=== PATIENT | male | born 1960 | race African-American/Black ===

== ENCOUNTER 2021-02-16 14:38 | Outpatient (REF) | payer BC, SELFPAY | END 2021-02-16 14:39 | disposition home or self-care (01) | LOC: HO.LAB 14:38 | PROVIDERS: Visit Provider Nurse Practitioner Family | DX: Z20.822 Contact with and (suspected) exposure to COVID-19 (principal); J40 Bronchitis, not specified as acute or chronic | CPT/HCPCS: U0003; U0005 ==

== ENCOUNTER 2021-05-07 08:43 | Inpatient (IN) | payer OTHER, SELFPAY ==
[2021-05-07] VITALS (8 sets, daily range): BP systolic 120–170; BP diastolic 59–84; PULSE 101–115; RESP 17–23; TEMP 36.9–39.4; O2SAT 92–96; BMI 30.5
--- NOTE | ~2021-05-07 | XR_ITS ---
EXAMINATION: XR CHEST CLINICAL INFORMATION: Cough. COMPARISON: None TECHNIQUE: Frontal view of the chest was obtained. FINDINGS: Lungs are well-expanded with patchy opacity left upper lobe likely infiltrate or consolidation. Rest of lungs are clear. The heart size and pulmonary vascularity is normal. There is moderate spondylosis dorsal spine. XR/XR chest 1V IMPRESSION: Left upper lobe consolidation/infiltrate.
--- NOTE | ~2021-05-07 | CT_ITS ---
EXAMINATION: CT HEAD WITHOUT CONTRAST (STROKE PROTOCOL) CLINICAL INFORMATION: Stroke protocol. Off balance. COMPARISON: None TECHNIQUE: Contiguous axial imaging was performed from the skull base to vertex without intravenous administration of contrast. This CT examination was performed using dose optimization techniques as appropriate, variously including the following: *Automated exposure control *Adjustment of mA and/or kV according to patient size (this includes techniques or standardized protocols for targeted exams where dose is matched to indication/reason for exam; i.e. extremities or head) *Use of iterative reconstruction technique DLP: 1763 mGy-cm FINDINGS: There is no intracranial hemorrhage, hematoma, or extra-axial fluid collection. The ventricles are normal in size. There is no hydrocephalus, edema, or mass effect. The hernández-white matter differentiation appears symmetric. There is no acute infarct or mass lesion. The calvarium appears intact. There is no pneumocephalus or orbital emphysema. Mucus retention cyst versus polyp within the right maxillary sinus. The visualized sinuses and middle ears and mastoid air cells show no significant mucosal thickening. There are no air-fluid levels. CT/CT head for stroke IMPRESSION: No acute intracranial hemorrhage or mass effect. This critical result was discussed with ALDO Bruce at 1:50 PM on 05/10/2021. It was ascertained that the content and urgency of the report was understood at the time of direct communication.
--- NOTE | ~2021-05-07 | US_ITS ---
EXAMINATION: US EXTRACRANIAL CAROTID DUPLEX, BILATERAL CLINICAL INFORMATION: Stroke protocol COMPARISON: None TECHNIQUE: Real-time ultrasound and Doppler techniques (integrating B-mode 2-D vascular images, Doppler spectral analysis and color-flow Doppler imaging) were utilized to interrogate the extracranial carotid arteries, the vertebral arteries and proximal subclavian arteries bilaterally. The degree of stenosis is determined by criteria similar to NASCET. FINDINGS: Right Side: 1. There is no significant atherosclerotic plaque seen in the bifurcation/proximal ICA region. 2. The common carotid artery PSV proximally is 94 cm/s and distally 81 cm/s. 3. The proximal internal carotid artery velocities are 76 cm/s systolic and 16 cm/s diastolic. 4. The proximal external carotid artery PSV is 108 cm/s. 5. The vertebral artery shows antegrade flow. 6. The subclavian artery waveforms are normal. Left Side: 1. There is no significant atherosclerotic plaque seen in the bifurcation/proximal ICA region. 2. The common carotid artery PSV proximally is 123 cm/s and distally 83 cm/s. 3. The proximal internal carotid artery velocities are 66 cm/s systolic and 19 cm/s diastolic. 4. The proximal external carotid artery PSV is 145 cm/s. 5. The vertebral artery shows antegrade flow. 6. The subclavian artery waveforms are normal. US/US carotid duplex BI IMPRESSION: 1. RIGHT: Normal right internal carotid artery without atherosclerotic plaque or hemodynamically significant stenosis. 2. LEFT: Normal left internal carotid artery without atherosclerotic plaque or hemodynamically significant stenosis.
--- NOTE | ~2021-05-07 | MR_ITS ---
EXAMINATION: MRI BRAIN WITHOUT CONTRAST CLINICAL INFORMATION: Question posterior circulation stroke. COMPARISON: CT scanning of the head 05/11/2021. TECHNIQUE: Multiplanar MR imaging of the brain was performed without contrast. FINDINGS: There is an ill-defined focus of restricted diffusion involving the right periatrial white matter. A few other discrete foci of diffusion are visualized within the right dorsal thalamus, left storm, and right cerebral hemisphere. These findings are consistent with acute infarcts within the posterior circulation. Otherwise no pathological magnetic susceptibility artifact. Intracranial vascular flow voids are maintained. There is no intracranial mass effect or midline shift. No abnormal extra-axial collection. Lateral and third ventricles are normal. No hydrocephalus.. Evaluation the midline structures demonstrates advanced degenerative arthrosis with at least moderate canal stenosis at the level of C3-C4. No acute bone marrow signal changes. There is no mastoid or middle ear effusion. Mild paranasal sinus disease primarily affecting the ethmoid air cells and there is a tension cyst within the right maxillary sinus. Globes and orbits are symmetric. 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 If there are clinical symptoms of compressive myelopathy then a dedicated cervical spine MRI can be obtained for better anatomic characterization of the cord and canal.
--- NOTE | ~2021-05-07 | CT_ITS ---
EXAMINATION: CT ANGIOGRAM OF THE CHEST WITH AND WITHOUT CONTRAST (CT PULMONARY ANGIOGRAM FOR PE) CLINICAL INFORMATION: Shortness of breath. COMPARISON: Chest radiograph done earlier today at 9:12 AM. TECHNIQUE: Prior to contrast administration, noncontrast localization images were obtained. Subsequently, multidetector volumetric imaging was performed from the thoracic inlet to below the diaphragms following the administration of 71 mL Omnipaque 350 intravenous contrast. No contrast reaction reported Sagittal, coronal, and MIP oblique sagittal reformatted images were obtained on the CT workstation, uploaded to PACS, and reviewed. This CT examination was performed using dose optimization techniques as appropriate, variously including the following: *Automated exposure control *Adjustment of mA and/or kV according to patient size (this includes techniques or standardized protocols for targeted exams where dose is matched to indication/reason for exam; i.e. extremities or head) *Use of iterative reconstruction technique Total exam dose-length product 124 mGy-cm FINDINGS: QUALITY OF STUDY/CONTRAST BOLUS: Suboptimal. PULMONARY ARTERIES: Examination is somewhat limited by motion and visualization of segmental and subsegmental branches in the left lung is suboptimal due to overlying airspace opacities. Accounting for these limitations, no central or segmental pulmonary emboli are identified. THORACIC AORTA: Scattered atherosclerotic disease. No aneurysm or dissection. LUNG: Extensive consolidation in the left upper lobe with internal air bronchograms. Less extensive consolidative changes in the left lower lobe. Groundglass opacities in the periphery of the right upper lobe, right middle lobe and right lung base. The main airways are patent. PLEURA: Small left pleural effusion. No pneumothorax. MEDIASTINUM: Normal heart size. No pericardial effusion. No hilar or mediastinal lymphadenopathy. No evidence of septal bowing or right heart strain. CHEST WALL/AXILLA: No axillary or internal mammary lymphadenopathy. OSSEOUS STRUCTURES: No acute or suspicious osseous abnormality. UPPER ABDOMEN: Unremarkable. No reflux of contrast into the hepatic veins to suggest elevated right heart pressures. CT/CT angio chest PE protocol IMPRESSION: Evaluation of segmental and subsegmental branches is somewhat suboptimal due to motion and overlying airspace opacities. Accounting for these limitations, no definite pulmonary emboli are identified. No signs of increased right-sided heart pressures. Multifocal airspace disease with the largest consolidation in the left upper lobe, this could be related with a multifocal pneumonia. Recommend a short-term follow-up to ensure resolution. VTE: negative
--- NOTE | 2021-05-07 08:54 | ED_ITS ---
HPI - URI/Sore Throat General Chief Complaint: Upper Respiratory Symptoms Stated Complaint: FLU LIKE,SOB,FVR,CHILLS,BODYACHES,CRUISE RTN 05/05 Time Seen by Provider: 05/07/21 08:45 Source: patient and EMS Mode of arrival: EMS Limitations: no limitations History of Present Illness MD elicited complaint: other (fevers, body aches, feels weak) Pertinent past history: other (just came back from [place] cruise - someone 3 cabins down had COVID) Onset (ago): day(s) (5) Consistency: constant Severity: moderate Able to tolerate fluids by mouth: Yes Exacerbating factors: nothing Relieving factors: nothing Context: other (cruise travel (port out of [place])) Associated symptoms: fever, chills, myalgias, headache and cough Treatments prior to arrival: acetaminophen Related Data Home Medications Medication Instructions Recorded Confirmed adalimumab 40 mg/0.4 mL 40 mg SUBCUT Q2W 02/12/21 subcutaneous pen kit amlodipine 10 mg tablet 10 mg PO DAILY 02/12/21 atorvastatin 40 mg tablet 40 mg PO DAILY 02/12/21 atorvastatin 80 mg tablet 0 mg PO 02/12/21 dorzolamide 22.3 mg-timolol 6.8 1 drp OPHTHALMIC (EYE) BID 02/12/21 mg/mL eye drops dulaglutide 1.5 mg/0.5 mL 1.5 mg SUBCUT QWEEK 02/12/21 subcutaneous pen injector etodolac 400 mg tablet 400 mg PO BID 02/12/21 folic acid 1 mg tablet 1 mg PO BID 02/12/21 gabapentin 300 mg capsule 300 mg PO TID 02/12/21 gabapentin 400 mg capsule 400 mg PO TID 02/12/21 hydrochlorothiazide 25 mg tablet 12.5 mg PO QAM 02/12/21 insulin glargine 100 unit/mL (3 30 unit SUBCUT BEDTIME 02/12/21 mL) subcutaneous pen leflunomide 20 mg tablet 10 mg PO DAILY 02/12/21 meloxicam 15 mg tablet 15 mg PO DAILY 02/12/21 metformin 1,000 mg tablet 1,000 mg PO BID 02/12/21 methotrexate sodium 2.5 mg tablet mg PO 02/12/21 netarsudil 0.02 %-latanoprost 1 drp OPHTHALMIC (EYE) BEDTIME 02/12/21 0.005 % eye drops omeprazole 20 mg capsule,delayed 20 mg PO DAILY 02/12/21 release sertraline 100 mg tablet 100 mg PO DAILY 02/12/21 Previous Rx's Medication Instructions Recorded carbamide peroxide 6.5 % ear drops 5 drp OTIC (EARS) DAILY 4 Days #18 02/12/21 (Debrox) ml albuterol sulfate 90 mcg/actuation 2 puff INHALATION Q4-6H PRN #6.7 g 02/16/21 aerosol inhaler (ProAir HFA) azithromycin 250 mg tablet See Rx Instructions PO .COMPLEX #6 02/16/21 tab prednisone 20 mg tablet 40 mg PO DAILY 5 Days #10 tab 02/16/21 Allergies Allergy/AdvReac Type Severity Reaction Status Date / Time No Known Allergies Allergy Verified 02/16/21 14:05 [No Known Allergies*] Review of Systems Review of Systems: Constitutional : No Weight loss, pos Fever, pos Chills, pos Fatigue, pos Malaise ENT/Mouth : No sore throat, pos Rhinorrhea Eyes: No Eye Pain, No Swelling, No Redness Cardiovascular : No Chest Pain, No SOB, No Dyspnea on Exertion Respiratory : pos Cough, No Sputum, No Wheezing Gastrointestinal : No Nausea, No Vomiting, No Diarrhea, No Constipation, No abdominal Pain, No Hematochezia, No Melena Genitourinary : No Dysuria, No Urinary Frequency, No Hematuria, Musculoskeletal : No joint pain, pos Myalgias, No Joint Swelling Skin : No Skin Lesions, No rash Neuro : pos Weakness, No Numbness, No Dizziness, No Headache Psych : No Anxiety/Panic, No Depression Heme/Lymph: No Bruising, No Bleeding,No Lymphadenopathy Endocrine : No Polyuria, No Polydipsia All other systems reviewed and are negative [facility] Past Medical History Attestation statement: The following information was validated with the patient. Medical History Diabetes HTN (hypertension) Hyperlipidemia Social History Social History Alcohol intake: never Patient Tobacco Use Status: Current everyday Tobacco user Use of substances other than those prescribed or required for medical reasons: No Advance Directives: No Advance Directives Information Provided: No Physical Exam Vital Signs: Vital Signs: Last Vital Signs Temp 99.9 F 05/07/21 08:51 Pulse 109 H 05/07/21 08:51 Resp 18 05/07/21 08:51 BP 143/76 H 05/07/21 08:51 Pulse Ox 96 05/07/21 08:51 Body Mass Index 30.5 Appearance: Alert. Oriented X3. No acute distress. Eyes: Pupils equal, round and reactive to light. ENT: Pharynx normal. Neck: Normal inspection. Neck supple. CVS: tachycardic heart rate and rhythm. Pulses normal. Respiratory: No respiratory distress. Breath sounds normal. Abdomen: Soft and non-tender. Skin: Skin warm and dry. Normal skin color. Normal skin turgor. Extremities: No lower extremity edema. No calf ttp Neuro: Oriented X 3. No motor deficit. No sensory deficit. Course Course Course Narrative: IV abx ordered given EDMUND infiltrate - CAP - ceftriaxone and levofloxacin legionella ordered MDM - URI/Sore Throat MDM Narrative Medical decision making narrative: 61 yo male with DM, HTN, HLD vaccinated several months ago with Moderna here with c/o flu like illness after going on a cruise. He does note that someone 3 cabins down tested positive for COVID. At this time labs, CXR, FLU/RSV/COVID ordered, gentle fluids Lab Data Result diagrams: 05/07/21 09:22 05/07/21 09:22 Labs: Lab Results 05/07/21 05/07/21 05/07/21 Range/Units 09: 09:22 09:22 WBC 11.1 H (4.8-10.8) X10*3/uL RBC 4.77 (4.60-5.80) X10*6/uL Hgb 11.6 L (14.0-18.0) g/dl Hct 34.0 L (42-52) % MCV 71.3 L (80-98) fL MCH 24.3 L (27.0-33.0) pg MCHC 34.1 (31.0-36.0) g/dl RDW 13.5 (11.0-16.0) % Plt Count 178 (160-400) X10*3/uL MPV 10.9 (9.4-12.4) fL Immature Gran % (Auto) 0.6 H (0.0-0.4) % Neut % (Auto) 87.2 H (45-73) % Lymph % (Auto) 5.9 L (20-40) % [place] % (Auto) 6.1 (2-11) % Eos % (Auto) 0.0 (0-4) % Baso % (Auto) 0.2 (0-2) % Lymph # (Auto) 0.7 L (1.2-4.9) X10*3/uL [place] # (Auto) 0.7 (0.1-1.2) X10*3/uL Eos # (Auto) 0.0 (0.0-0.4) X10*3/uL Baso # (Auto) 0.0 (0.0-0.2) X10*3/uL Abs Immat Gran (auto) 0.07 H (0.00-0.03) X10*3/uL Absolute Neuts (auto) 9.7 H (2.0-8.3) X10*3/uL Absolute Nucleated RBC 0.000 (0.0-0.012) X10*3/uL Nucleated RBC % (auto) 0.0 (0.0-0.2) /100WBC Sodium 126 L (135-145) mmol/L Potassium 3.8 (3.3-5.1) mmol/L Chloride 92 L (96-108) mmol/L Carbon Dioxide 22 (22-29) mmol/L Anion Gap 16 (12-20) BUN 16 (9-16) mg/dL Creatinine 1.29 (0.5-1.4) mg/dL Estim Creat Clear Calc 74.3 Estimated GFR 57 Random Glucose 336 H (60-115) mg/dL Lactic Acid (0.5-2.0) mmol/L Calcium 8.8 (8.4-10.2) mg/dL Magnesium 1.3 L* (1.6-2.6) mg/dL Total Bilirubin 3.9 H (0.0-1.0) mg/dL Direct Bilirubin 2.0 H (0.0-0.5) mg/dL AST 48 H (5-37) U/L ALT 38 (0-40) U/L Alkaline Phosphatase 58 (39-117) U/L Total Protein 6.5 (6.5-8.0) g/dL Albumin 3.6 (3.5-5.0) g/dL Coronavirus (PCR) NEGATIVE (Negative) Influenza Type A (PCR) NEGATIVE (Negative) Influenza Type B (PCR) NEGATIVE (Negative) RSV RNA Qual (PCR) NEGATIVE (Negative) 05/07/21 Range/Units 09:22 WBC (4.8-10.8) X10*3/uL RBC (4.60-5.80) X10*6/uL Hgb (14.0-18.0) g/dl Hct (42-52) % MCV (80-98) fL MCH (27.0-33.0) pg MCHC (31.0-36.0) g/dl RDW (11.0-16.0) % Plt Count (160-400) X10*3/uL MPV (9.4-12.4) fL Immature Gran % (Auto) (0.0-0.4) % Neut % (Auto) (45-73) % Lymph % (Auto) (20-40) % [place] % (Auto) (2-11) % Eos % (Auto) (0-4) % Baso % (Auto) (0-2) % Lymph # (Auto) (1.2-4.9) X10*3/uL [place] # (Auto) (0.1-1.2) X10*3/uL Eos # (Auto) (0.0-0.4) X10*3/uL Baso # (Auto) (0.0-0.2) X10*3/uL Abs Immat Gran (auto) (0.00-0.03) X10*3/uL Absolute Neuts (auto) (2.0-8.3) X10*3/uL Absolute Nucleated RBC (0.0-0.012) X10*3/uL Nucleated RBC % (auto) (0.0-0.2) /100WBC Sodium (135-145) mmol/L Potassium (3.3-5.1) mmol/L Chloride (96-108) mmol/L Carbon Dioxide (22-29) mmol/L Anion Gap (12-20) BUN (9-16) mg/dL Creatinine (0.5-1.4) mg/dL Estim Creat Clear Calc Estimated GFR Random Glucose (60-115) mg/dL Lactic Acid 2.2 H* (0.5-2.0) mmol/L Calcium (8.4-10.2) mg/dL Magnesium (1.6-2.6) mg/dL Total Bilirubin (0.0-1.0) mg/dL Direct Bilirubin (0.0-0.5) mg/dL AST (5-37) U/L ALT (0-40) U/L Alkaline Phosphatase (39-117) U/L Total Protein (6.5-8.0) g/dL Albumin (3.5-5.0) g/dL Coronavirus (PCR) (Negative) Influenza Type A (PCR) (Negative) Influenza Type B (PCR) (Negative) RSV RNA Qual (PCR) (Negative) Discharge Plan Discharge Clinical Impression: Acidosis, lactic, Acute hyponatremia, Pneumonia Patient Disposition: Admitted As Inpatient Prescriptions: No Action methotrexate sodium 2.5 mg tablet PO RF: 0 gabapentin 400 mg capsule 400 mg PO TID RF: 0 Rocklatan 0.02-0.005 % drops 1 drp ophthalmic (eye) BEDTIME RF: 0 Trulicity 1.5 mg/0.5 mL pen injector 1.5 mg subcut QWEEK RF: 0 metformin 1,000 mg tablet 1,000 mg PO BID RF: 0 folic acid 1 mg tablet 1 mg PO BID RF: 0 hydrochlorothiazide 25 mg tablet 12.5 mg PO QAM RF: 0 dorzolamide-timolol 22.3-6.8 mg/mL drops 1 drp ophthalmic (eye) BID RF: 0 etodolac 400 mg tablet 400 mg PO BID RF: 0 gabapentin 300 mg capsule 300 mg PO TID RF: 0 omeprazole 20 mg capsule,delayed release(DR/EC) 20 mg PO DAILY RF: 0 atorvastatin 80 mg tablet 0 mg PO RF: 0 amlodipine 10 mg tablet 10 mg PO DAILY RF: 0 meloxicam 15 mg tablet 15 mg PO DAILY RF: 0 sertraline 100 mg tablet 100 mg PO DAILY RF: 0 atorvastatin 40 mg tablet 40 mg PO DAILY RF: 0 leflunomide 20 mg tablet 10 mg PO DAILY RF: 0 Humira(CF) Pen 40 mg/0.4 mL pen injector kit 40 mg subcut Q2W RF: 0 Lantus Solostar U-100 Insulin 100 unit/mL (3 mL) insulin pen 30 unit subcut BEDTIME RF: 0 carbamide peroxide [Debrox] 6.5 % drops 5 drp otic (ears) DAILY 4 Days Qty: 18 RF: 0 albuterol sulfate [ProAir HFA] 90 mcg/actuation HFA aerosol inhaler 2 puff inhalation Q4-6H PRN (Reason: shortness of breath or wheezing) Qty: 6.7 RF: 0 prednisone 20 mg tablet 40 mg PO DAILY 5 Days Qty: 10 RF: 0 azithromycin 250 mg tablet See Rx Instructions PO .COMPLEX Qty: 6 RF: 0
[2021-05-07 09:28] LABS: MANUAL DIFF FLAG NO
[2021-05-07 09:31] LABS: Basophils Percent Auto 0.2 % (0-2); Hemoglobin 11.6 g/dl (14.0-18.0); Imm Gran Abs Auto 0.07 X10*3/uL (0.00-0.03); Imm Gran Pct Auto 0.6 % (0.0-0.4); Lymphocytes Absolute Auto 0.7 X10*3/uL (1.2-4.9); Lymphocytes Percent Auto 5.9 % (20-40); Mean Corpuscular HGB Conc 34.1 g/dl (31.0-36.0); Mean Corpuscular Hemoglobin 24.3 pg (27.0-33.0); Mean Corpuscular Volume 71.3 fL (80-98); Mean Platelet Volume 10.9 fL (9.4-12.4); Monocytes Absolute Auto 0.7 X10*3/uL (0.1-1.2); Monocytes Percent Auto 6.1 % (2-11); Neutrophils Absolute Auto 9.7 X10*3/uL (2.0-8.3); Neutrophils Percent Auto 87.2 % (45-73); Platelet Count 178 X10*3/uL (160-400); Red Blood Count 4.77 X10*6/uL (4.60-5.80); Red Cell Distribution Width 13.5 % (11.0-16.0); White Blood Count 11.1 X10*3/uL (4.8-10.8)
[2021-05-07] MEDS: HYDROcodone/Homat 5/1.5/5 ML 5 ML SYRUP PO (09:36)
[2021-05-07] MEDS: 0.9 % Sodium Chloride 500 ML IV (09:36)
[2021-05-07] MEDS: Ibuprofen 600 MG TABLET PO (09:36)
[2021-05-07 09:41] LABS: Lactic Acid 2.2 mmol/L (0.5-2.0)
[2021-05-07 09:53] LABS: Alanine Aminotransferase 38 U/L (0-40); Albumin Level 3.6 g/dL (3.5-5.0); Alkaline Phosphatase 58 U/L (39-117); Anion Gap 16 (12-20); Aspartate Amino Transferase 48 U/L (5-37); Bilirubin Total 3.9 mg/dL (0.0-1.0); Blood Urea Nitrogen 16 mg/dL (9-16); Calcium 8.8 mg/dL (8.4-10.2); Carbon Dioxide 22 mmol/L (22-29); Chloride 92 mmol/L (96-108); Creatinine Clr Calc Pharmacy 74.3; Estimated Glomerular Filt Rate 57; Glucose Random 336 mg/dL (60-115); Magnesium 1.3 mg/dL (1.6-2.6); Potassium 3.8 mmol/L (3.3-5.1); Sodium 126 mmol/L (135-145); Total Protein 6.5 g/dL (6.5-8.0)
[2021-05-07] MEDS: cefTRIAXone sodium 1 GM in 0.9 % Sodium Chloride 50 ML IV (10:05)
[2021-05-07] MEDS: Magnesium Sulfate/H2O 2 GM/50 ML PIGGYBACK IV (10:05)
[2021-05-07 10:13] LABS: Influenza A PCR NEGATIVE (Negative); Influenza B PCR NEGATIVE (Negative); Resp Syncy Virus RNA Qual PCR NEGATIVE (Negative); SARS COV2 PCR INHOUSE NEGATIVE (Negative)
--- NOTE | 2021-05-07 10:58 | PM.IMHP ---
History of Present Illness Date of Service: 05/07/21 Chief Complaint: fevers, generalized malaise, cough, diarrhea This is a 61-year-old male with a past medical history of hypertension, insulin-dependent diabetes, hyperlipidemia, who reports that for the last about 4 days he has had fevers and chills, nonproductive cough, back ache, diarrhea about 3-4 times daily with associated loss of appetite but no vomiting. Patient reports that he was on a [place] Cruise and his symptoms began about 4-5 days ago. Per ED provider report -- there was a known COVID sick contact on the cruise. The patient himself denies anyone else within his house hold being sick. He endorses that he has been vaccinated for COVID, for several months at least. He reports that his diarrhea was watery, 3-4 times a day without blood. He reports loss of appetite and reports that he has not taken his medications for several days. He denies any tobacco, alcohol or illicit substance use. Upon arrival to the ED, he was noted to be tachycardic and mild respiratory distress. His work up showed elevated LFTs - T. Bili 3.9, elevated lactate 0 2.2, a CXR showing pneumonia, SNa 126, Glucose, Mag 1.3 He was given IV rocephin/levaquin/IV fluids, IV mag and admission was requested. Review of Systems Review of Systems: General - +fevers/chills/generalized malaise HEENT - +headache Cardiovascular - denies chest pain or palpitations, denies edema Respiratory - +SOB, cough -- non productive Gastrointestinal - +diarrhea, no nausea/vomiting, +loss of appetite - denies flank pain, denies dysuria, denies frequency or urgency Musculoskeletal - denies back pain, denies hip pain, denies knee pain, denies shoulder pain Neurological - denies any focal weakness or numbness Skin, denies any bruising or redness Psychiatric - denies any suicidal ideation, hallucinations, homicidal ideation Endocrinology - denies intolerance to hot / cold temperatures [facility] Medical History (Updated 05/07/21 @ 12:48 by Edmond Diaz MD) Diabetes Glaucoma HTN (hypertension) Hyperlipidemia Rheumatoid arteritis Pertinent family history: DM and Dementia in his mother Surgical History (Updated 05/07/21 @ 11:10 by Edmond Diaz MD) No pertinent past surgical history Social History (Updated 05/07/21 @ 11:11 by Edmond Diaz MD) Alcohol intake: former Patient Tobacco Use Status: Current everyday Tobacco user Use of substances other than those prescribed or required for medical reasons: No Advance Directives: No Advance Directives Information Provided: No Meds Allergies Allergy/AdvReac Type Severity Reaction Status Date / Time No Known Allergies Allergy Verified 02/16/21 14:05 [No Known Allergies*] Active Medications: Current Medications Acetaminophen (Acetaminophen 325 Mg Tablet) 650 mg PO Q6H PRN PRN Reason: Pain, Mild (Pain Scale 1-3) Magnesium Sulfate (Magnesium Sulfate/H2o) 2 gm in 50 mls @ 25 mls/hr IV ONCE ONE Stop: 05/07/21 11:51 Last Admin: 05/07/21 10:05 Dose: 25 mls/hr Documented by: Levofloxacin (Levaquin) 500 mg in 100 mls @ 100 mls/hr IV ONCE ONE Stop: 05/07/21 11:14 Sodium Chloride (Ns) 1,000 mls @ 100 mls/hr IVCONT .Q10H CATY Stop: 05/07/21 20:59 Ceftriaxone Sodium 1 gm/ (Sodium Chloride) 50 mls @ 100 mls/hr IV Q24H CATY Azithromycin 500 mg/ Sodium (Chloride) 250 mls @ 125 mls/hr IV Q24H CATY Ondansetron HCl (Ondansetron Hcl 4 Mg/2 Ml Vial) 4 mg IVPUSH Q8H PRN PRN Reason: Nausea and Vomiting Pharmacy Consult (Consult Rx Perform Med Rec) 1 each MISCELLANE ONCE PRN PRN Reason: Consult order Sodium Chloride (0.9 % Sodium Chloride Flush 3 Ml Syringe) 3 ml IVFLUSH QSHIFT [facility] Home Medications Medication Instructions Recorded Confirmed Last Taken Type amlodipine 10 mg tablet 10 mg PO DAILY 02/12/21 05/07/21 05/06/21 History atorvastatin 80 mg tablet 40 mg PO DAILY 02/12/21 05/07/21 05/06/21 History dorzolamide 22.3 mg-timolol 6.8 1 drp OPHTHALMIC (EYE) BID 02/12/21 05/07/21 05/06/21 History mg/mL eye drops dulaglutide 1.5 mg/0.5 mL 1.5 mg SUBCUT MO 02/12/21 05/07/21 05/06/21 History subcutaneous pen injector etodolac 400 mg tablet 400 mg PO BID 02/12/21 05/07/21 05/06/21 History folic acid 1 mg tablet 1 mg PO BID 02/12/21 05/07/21 05/06/21 History gabapentin 300 mg capsule 600 mg PO BID 02/12/21 05/07/21 05/06/21 History insulin glargine 100 unit/mL (3 60 unit SUBCUT BEDTIME 02/12/21 05/07/21 05/06/21 History mL) subcutaneous pen metformin 1,000 mg tablet 1,000 mg PO BID 02/12/21 05/07/21 05/06/21 History netarsudil 0.02 %-latanoprost 1 drp OPHTHALMIC (EYE) BEDTIME 02/12/21 05/07/21 05/06/21 History 0.005 % eye drops omeprazole 20 mg capsule,delayed 20 mg PO DAILY 02/12/21 05/07/21 05/06/21 History release sertraline 100 mg tablet 100 mg PO DAILY 02/12/21 05/07/21 05/06/21 History aspirin 81 mg chewable tablet 81 mg PO DAILY 05/07/21 05/07/21 05/06/21 History glimepiride 4 mg tablet 1 tab PO DAILY 05/07/21 05/07/21 Unknown History prednisolone acetate 1 % eye 1 drp OPHTHALMIC (EYE) DAILY 05/07/21 05/07/21 05/06/21 History drops,suspension prednisone 1 mg tablet 3 mg PO DAILY 05/07/21 05/07/21 05/06/21 History prednisone 5 mg tablet 10 mg PO DAILY 05/07/21 05/07/21 05/06/21 History valacyclovir 1 gram tablet 1 tab PO BID 05/07/21 05/07/21 05/06/21 History Physical Exam Vital Signs and Narrative: Vital Signs: Last Vital Signs Temp 99.9 F 05/07/21 08:51 Pulse 109 H 05/07/21 08:51 Resp 18 05/07/21 08:51 BP 143/76 H 05/07/21 08:51 Pulse Ox 96 05/07/21 08:51 Body Mass Index 30.5 Const: Other: Constitutional - Awake and Alert, No apparent distress, ill appearing Eyes - PERRLA, EOMI Cardiovascular - S1S2, RRR, No edema Respiratory - diminished sounds Gastrointestinal - NT / ND; +BS; No rebound or guarding - No CVA tenderness Extremities - no calf tenderness bilaterally, no swelling Musculoskeletal - Normal inspection, normal ROM Skin - Warm/Dry Neurological - Alert & oriented x3, No focal deficit Psychological - Appropriate affect Results Labs CBC and Chem 7: 05/07/21 09:22 05/07/21 09:22 Labs: Laboratory Results - last 24 hr 05/07/21 05/07/21 05/07/21 09: 09:22 09:22 MCV 71.3 L MCH 24.3 L MCHC 34.1 RDW 13.5 Plt Count 178 MPV 10.9 Immature Gran % (Auto) 0.6 H Neut % (Auto) 87.2 H Lymph % (Auto) 5.9 L [place] % (Auto) 6.1 Eos % (Auto) 0.0 Baso % (Auto) 0.2 Lymph # (Auto) 0.7 L [place] # (Auto) 0.7 Eos # (Auto) 0.0 Baso # (Auto) 0.0 Abs Immat Gran (auto) 0.07 H Absolute Neuts (auto) 9.7 H Absolute Nucleated RBC 0.000 Nucleated RBC % (auto) 0.0 Anion Gap 16 Estim Creat Clear Calc 74.3 Estimated GFR 57 Random Glucose 336 H Lactic Acid Calcium 8.8 Magnesium 1.3 L* Total Bilirubin 3.9 H Direct Bilirubin 2.0 H AST 48 H ALT 38 Alkaline Phosphatase 58 Total Protein 6.5 Albumin 3.6 Coronavirus (PCR) NEGATIVE Influenza Type A (PCR) NEGATIVE Influenza Type B (PCR) NEGATIVE RSV RNA Qual (PCR) NEGATIVE 05/07/21 09:22 MCV MCH MCHC RDW Plt Count MPV Immature Gran % (Auto) Neut % (Auto) Lymph % (Auto) [place] % (Auto) Eos % (Auto) Baso % (Auto) Lymph # (Auto) [place] # (Auto) Eos # (Auto) Baso # (Auto) Abs Immat Gran (auto) Absolute Neuts (auto) Absolute Nucleated RBC Nucleated RBC % (auto) Anion Gap Estim Creat Clear Calc Estimated GFR Random Glucose Lactic Acid 2.2 H* Calcium Magnesium Total Bilirubin Direct Bilirubin AST ALT Alkaline Phosphatase Total Protein Albumin Coronavirus (PCR) Influenza Type A (PCR) Influenza Type B (PCR) RSV RNA Qual (PCR) Imaging Radiologist's Impressions: Impressions Chest X-Ray 05/07/21 09:02 IMPRESSION: Left upper lobe consolidation/infiltrate. Assessment and Plan (1) Pneumonia: Qualifiers: Laterality: left Lung location: upper lobe of lung Pneumonia type: due to unspecified organism Qualified Code(s): J18.9 - Pneumonia, unspecified organism Status: Acute This is a 61 yo M with a PMH of DM, HTN, HLD who presents to the hospital with multiple complaints including shortness of breath, cough, diarrhea, generalized malaise, loss of appetite. He developed these symptoms while on a cruise. His presentation is concerning for suspected legionella. 1. Pneumonia Given his constellation of symptoms, hyponatremia, GI symptoms, travel aboard a cruise ship -- legeionella is suspected. F/u Urine Legionella studies IV rocephin / zithromax follow cultures not septic at this time 2. HypoNa partially pseudo from hyperglycemia IV hydration 3. Acute hepatitis Bili 3.9, check INR suspected from acute infection Trend and if it doesnt improve -- further work up No abdominal pain to suggest biliary obstruction 4. Hyperglycemia due to uncontrolled DM reports not taking his meds for several days hold oral, use sliding scale 5. RA ? on prednisone + Humira continue steroids, hold Humira Med rec pending -- will continue baseline meds as appropriate. Full Code DVT pptx, lovenox Quality Stroke Does the patient have a stroke diagnosis?: No VTE Prior VTE?: No VTE Risk Level:: Medical - moderate - high VTE Device Contraindication: N/A - Device Ordered VTE Drug Contraindication: Treatment Not Indicated
[2021-05-07] MEDS: levoFLOXacin/D5W 500 MG/100 ML PIGGYBACK 100 MG IV (11:01)
[2021-05-07] MEDS: 0.9 % Sodium Chloride 1,000 ML 100 ML IVCONT (11:01)
[2021-05-07 11:25] LABS: Reflex Lactate? Lactic Acid Added
[2021-05-07] MEDS: Azithromycin 500 MG in 0.9 % Sodium Chloride 250 ML 125 MG IV (12:06)
--- NOTE | 2021-05-07 12:13 | PHA.MEDREC ---
Pharmacy Consult ? Medication Reconciliation Pharmacy has completed the medication reconciliation. Confirmed medication with patient's . All the eye drops have no been filled recently. Zaida Palacios, PharmD
[2021-05-07 12:15] LABS: Glucose, Whole Blood 291 mg/dL (60-115)
[2021-05-07 12:19] LABS: INTERNATIONAL NORM RATIO 1.3 (0.9-1.1); Prothrombin Time 15.4 SEC (9.9-13.0)
[2021-05-07 12:23] LABS: ~Lactic Acid-LAB USE ONLY 1.6 mmol/L (0.5-2.0)
[2021-05-07] MEDS: Insulin Lispro 100 UNIT/ML 3 ML VIAL SUBCUT ×2 (12:43→18:54)
[2021-05-07 14:16] LABS: Appearance Urine HAZY; Color Urine DK YELLOW; Glucose Urine UA >=1000 MG/DL (NEG); Leukocyte Esterase Urine NEG (NEG); Nitrite Urine NEG (NEG); Specific Gravity - Urine 1.025 (1.005-1.025); UACC Culture Trigger NO; Urine Blood 2+ (NEG); Urine Ketones NEG (NEG); Urine Protein 2+ MG/DL (NEG-TRACE)
[2021-05-07] MEDS: Enoxaparin Sodium 40 MG/0.4 ML SYRINGE SUBCUT (14:30)
[2021-05-07] MEDS: predniSONE 5 MG TABLET 10 MG PO (14:30)
[2021-05-07] MEDS: predniSONE 1 MG TABLET 3 MG PO (14:30)
[2021-05-07] MEDS: guaiFENesin DM 100/10/5 ML 5 ML SYRUP PO ×2 (14:30→21:35)
[2021-05-07 14:37] LABS: White Blood Cell Casts Urine 0-2 /LPF
[2021-05-07 14:38] LABS: Bacteria Urine 1+ /LPF; Renal Epithelial Cells Urine TRACE /LPF
[2021-05-07 14:40] LABS: RBC Urine 0-2 /HPF (0); WBC Urine 0-2 /HPF (0-4)
[2021-05-07 15:27] LABS: Glucose, Whole Blood 256 mg/dL (60-115)
[2021-05-07] MEDS: 0.9 % Sodium Chloride Flush 3 ML SYRINGE IVFLUSH (17:49)
[2021-05-07] MEDS: Acetaminophen 325 MG TABLET 650 MG PO (19:21)
--- NOTE | 2021-05-07 20:07 | PC.NURSE ---
RN assumed care at 1900. Pt alert and oriented x4, calm and cooperative. Pt complaining of generalized body aches 5/10 worse in the neck, shoulder, and upper back. Pt states intermittent chest pain and SOB. Upon vitals assessment for oncoming shift mgr at 1900 pt fever 103, O2 at 87% on room air and heart 130s sustaining. Pt placed on 3 liters nasal cannula and O2 sat at 92%. Pt complaining of worsening dizziness with standing and noted to be weak on his feet when trying to ambulate. Hospitalist made aware, pt placed on tele monitor and CTA ordered. Pt voided without difficulties. Pt resting in stretcher without complaints at this time, will continue to monitor.
[2021-05-07] MEDS: iohexoL 350 MG/ML 100 ML INFUS..BTL IV (21:25)
[2021-05-07] MEDS: Gabapentin 300 MG CAPSULE 600 MG PO (21:35)
[2021-05-07] MEDS: Folic Acid 1 MG TABLET PO (21:36)
--- NOTE | 2021-05-07 23:24 | PC.NURSE ---
Pt alert and oriented x4, calm and cooperative. Pt denies pain. Pt afebrile at this time. Pt remains on 2 liters nasal cannula. Pt denies chest pain, pt states SOB has improved. IV remains intact. Vitals stable. Report given to BARRY Dasilva.
[2021-05-07 23:59] LABS: Glucose, Whole Blood 296 mg/dL (60-115)
[2021-05-08] VITALS (7 sets, daily range): BP systolic 139–178; BP diastolic 72–94; PULSE 98–125; RESP 16–19; TEMP 36.1–38.9; O2SAT 92–94
[2021-05-08] MEDS: Insulin Glargine,Hum.rec.anlog 100 UNIT/ML 10 ML VIAL 40 UNIT SUBCUT ×2 (00:05→21:08)
[2021-05-08] MEDS: Insulin Lispro 100 UNIT/ML 3 ML VIAL SUBCUT ×5 (00:06→21:08)
[2021-05-08] MEDS: 0.9 % Sodium Chloride Flush 3 ML SYRINGE IVFLUSH ×4 (00:07→21:08)
[2021-05-08] MEDS: guaiFENesin DM 100/10/5 ML 5 ML SYRUP PO ×2 (02:06→09:12)
[2021-05-08] MEDS: Acetaminophen 325 MG TABLET 650 MG PO ×2 (03:18→11:26)
--- NOTE | 2021-05-08 04:40 | PC.NURSE ---
0306; P: Elevated temp 101.7, bp 156/70, hr 125, oxygen 92% on 2 liters via n/c I: prn tylenol administered, ice packs applied. Encourage pt to drink fluids. Dr. Nassar notified via [employer]. 0415; E: Oral temp now 100.2, hr 110, oxygen 94% on 2 liters n/c. Continue to monitor.
[2021-05-08 05:42] LABS: MANUAL DIFF FLAG NO
[2021-05-08 05:45] LABS: Basophils Percent Auto 0.1 % (0-2); Hematocrit 31.2 % (42-52); Hemoglobin 10.9 g/dl (14.0-18.0); Imm Gran Abs Auto 0.08 X10*3/uL (0.00-0.03); Imm Gran Pct Auto 0.9 % (0.0-0.4); Lymphocytes Absolute Auto 0.5 X10*3/uL (1.2-4.9); Lymphocytes Percent Auto 5.9 % (20-40); Mean Corpuscular HGB Conc 34.9 g/dl (31.0-36.0); Mean Corpuscular Volume 68.7 fL (80-98); Mean Platelet Volume 10.9 fL (9.4-12.4); Monocytes Absolute Auto 0.7 X10*3/uL (0.1-1.2); Monocytes Percent Auto 7.1 % (2-11); Neutrophils Absolute Auto 7.9 X10*3/uL (2.0-8.3); Platelet Count 189 X10*3/uL (160-400); Red Blood Count 4.54 X10*6/uL (4.60-5.80); Red Cell Distribution Width 13.2 % (11.0-16.0); White Blood Count 9.1 X10*3/uL (4.8-10.8)
[2021-05-08] MEDS: Omeprazole 20 MG CAPSULE.DR PO (05:57)
[2021-05-08 06:32] LABS: Alanine Aminotransferase 35 U/L (0-40); Albumin Level 3.1 g/dL (3.5-5.0); Alkaline Phosphatase 56 U/L (39-117); Anion Gap 11 (12-20); Aspartate Amino Transferase 61 U/L (5-37); Bilirubin Direct 1.4 mg/dL (0.0-0.5); Bilirubin Total 2.3 mg/dL (0.0-1.0); Blood Urea Nitrogen 15 mg/dL (9-16); Calcium 7.9 mg/dL (8.4-10.2); Carbon Dioxide 24 mmol/L (22-29); Chloride 96 mmol/L (96-108); Estimated Glomerular Filt Rate > 60; Glucose Random 238 mg/dL (60-115); Potassium 3.6 mmol/L (3.3-5.1); Sodium 127 mmol/L (135-145); Total Protein 5.6 g/dL (6.5-8.0)
[2021-05-08 08:45] LABS: Glucose, Whole Blood 227 mg/dL (60-115)
--- NOTE | 2021-05-08 09:09 | P.PNIM_ITS ---
Subjective Subjective Date of Service: 05/08/21 Interval History: seen and examined this AM feeling about the same, was febrile all night reports coughing worsened and kept him up at night reports fevers and chills Review of Systems General - +fevers/chills Cardiovascular - no chest pain Respiratory - +sob Abdominal- no abdominal pain, nausea, vomiting, diarrhea Physical Exam Vital Signs: Vital Signs: Last Vital Signs Temp 100.6 F H 05/08/21 07:45 Pulse 105 H 05/08/21 07:45 Resp 18 05/08/21 07:45 BP 143/94 H 05/08/21 07:45 Pulse Ox 92 05/08/21 07:45 Oxygen Flow Rate 3 05/07/21 19:27 Body Mass Index 30.5 Const: Other: General - no acute distress, ill appearing Cardiovascular - tachycardic around low 100s Lungs - dim sounds Abdomen - soft, non-tender, no rebound or guarding Extremities - no edema bilaterally Neuro - awake and alert, no focal deficits Objective Data Active Medications Acetaminophen (Acetaminophen 325 Mg Tablet) 650 mg PO Q6H PRN PRN Reason: Pain, Mild (Pain Scale 1-3) Last Admin: 05/08/21 03:18 Dose: 650 mg Documented by: BRANDON Amlodipine Besylate (Amlodipine Besylate 10 Mg Tablet) 10 mg PO DAILY [facility]; Protocol Aspirin (Aspirin 81 Mg Tab.Chew) 81 mg PO DAILY [facility] Dorzolamide/Timolol (Dorzolamide/Timolo 2.23%/0.68% 10 Ml Drbtl) 1 drop EYE- BOTH BID [facility] Last Admin: 05/08/21 00:07 Dose: Not Given Documented by: BRANDON Non-Admin Reason: Med Not Available Enoxaparin Sodium (Enoxaparin Sodium 40 Mg/0.4 Ml Syringe) 40 mg SUBCUT Q24H [facility] Last Admin: 05/07/21 14:30 Dose: 40 mg Documented by: KENDY Folic Acid (Folic Acid 1 Mg Tablet) 1 mg PO BID [facility] Last Admin: 05/07/21 21:36 Dose: 1 mg Documented by: SHABBIR Gabapentin (Gabapentin 300 Mg Capsule) 600 mg PO BID [facility] Last Admin: 05/07/21 21:35 Dose: 600 mg Documented by: SHABBIR Guaifenesin/Dextromethorphan (Guaifenesin Dm 100/10/5 Ml 5 Ml Syrup) 5 ml PO Q6H [facility] Last Admin: 05/08/21 02:06 Dose: 5 ml Documented by: BRANDON Ceftriaxone Sodium 1 gm/ (Sodium Chloride) 50 mls @ 100 mls/hr IV Q24H [facility] Azithromycin 500 mg/ Sodium (Chloride) 250 mls @ 125 mls/hr IV Q24H [facility] Last Infusion: 05/07/21 14:19 Dose: 0 mls/hr Documented by: KENDY Insulin Glargine (Insulin Glargine,Hum.Rec.Anlog 100 Unit/Ml 10 Ml Vial) 40 unit SUBCUT BEDTIME [facility] Last Admin: 05/08/21 00:05 Dose: 40 unit Documented by: BRANDON Insulin Human Lispro (Insulin Lispro 100 Unit/Ml 3 Ml Vial) 0 unit SUBCUT QIDACHS [facility]; Protocol Last Admin: 05/08/21 00:06 Dose: 6 unit Documented by: BRANDON Comments: not given in ed poc 296 at 2352 Omeprazole (Omeprazole 20 Mg Capsule.Dr) 20 mg PO DAILY@0630 [facility] Last Admin: 05/08/21 05:57 Dose: 20 mg Documented by: BRANDON Ondansetron HCl (Ondansetron Hcl 4 Mg/2 Ml Vial) 4 mg IVPUSH Q8H PRN PRN Reason: Nausea and Vomiting Pharmacy Consult (Consult Rx Perform Med Rec) 1 each MISCELLANE ONCE PRN PRN Reason: Consult order Prednisolone Acetate (Prednisolone Acetate 1 % Oph Susp 5 Ml Drpbtl) 1 drop EYE-BOTH DAILY [facility] Prednisone (Prednisone 5 Mg Tablet) 10 mg PO DAILY [facility] Last Admin: 05/07/21 14:30 Dose: 10 mg Documented by: KENDY Prednisone (Prednisone 1 Mg Tablet) 3 mg PO DAILY [facility] Last Admin: 05/07/21 14:30 Dose: 3 mg Documented by: KENDY Sertraline HCl (Sertraline Hcl 100 Mg Tablet) 100 mg PO DAILY [facility] Sodium Chloride (0.9 % Sodium Chloride Flush 3 Ml Syringe) 3 ml IVFLUSH QSHIFT [facility] Last Admin: 05/08/21 00:07 Dose: 3 ml Documented by: BRANDON Valacyclovir HCl (Valacycyclovir Hcl 1,000 Mg Tablet) 1,000 mg PO BID [facility] Last Admin: 05/07/21 21:36 Dose: 1,000 mg Documented by: SHABBIR Labs CBC & Chem 7: 05/08/21 05:32 05/08/21 05:32 Labs: Laboratory Results - last 24 hr 05/07/21 05/07/21 05/07/21 09:21 09:22 09:22 MCV 71.3 L MCH 24.3 L MCHC 34.1 RDW 13.5 Plt Count 178 MPV 10.9 Immature Gran % (Auto) 0.6 H Neut % (Auto) 87.2 H Lymph % (Auto) 5.9 L [place] % (Auto) 6.1 Eos % (Auto) 0.0 Baso % (Auto) 0.2 Lymph # (Auto) 0.7 L [place] # (Auto) 0.7 Eos # (Auto) 0.0 Baso # (Auto) 0.0 Abs Immat Gran (auto) 0.07 H Absolute Neuts (auto) 9.7 H Absolute Nucleated RBC 0.000 Nucleated RBC % (auto) 0.0 PT INR Anion Gap 16 Estim Creat Clear Calc 74.3 Estimated GFR 57 POC Glucose Random Glucose 336 H Lactic Acid Lactic Acid Fup @ 2Hr Calcium 8.8 Magnesium 1.3 L* Total Bilirubin 3.9 H Direct Bilirubin 2.0 H AST 48 H ALT 38 Alkaline Phosphatase 58 Total Protein 6.5 Albumin 3.6 Urine Color Urine Appearance Urine pH Ur Specific [place] Urine Protein Urine Glucose (UA) Urine Ketones Urine Blood Urine Nitrite Ur Leukocyte Esterase Urine RBC Urine WBC Ur Squamous Epith Cells Ur Renal Epithelial Cell Urine Bacteria Granular Casts WBC Casts Coronavirus (PCR) NEGATIVE Influenza Type A (PCR) NEGATIVE Influenza Type B (PCR) NEGATIVE RSV RNA Qual (PCR) NEGATIVE 05/07/21 05/07/21 05/07/21 09:22 11:10 12:03 MCV MCH MCHC RDW Plt Count MPV Immature Gran % (Auto) Neut % (Auto) Lymph % (Auto) [place] % (Auto) Eos % (Auto) Baso % (Auto) Lymph # (Auto) [place] # (Auto) Eos # (Auto) Baso # (Auto) Abs Immat Gran (auto) Absolute Neuts (auto) Absolute Nucleated RBC Nucleated RBC % (auto) PT 15.4 H INR 1.3 H Anion Gap Estim Creat Clear Calc Estimated GFR POC Glucose Random Glucose Lactic Acid 2.2 H* Lactic Acid Fup @ 2Hr 1.6 Calcium Magnesium Total Bilirubin Direct Bilirubin AST ALT Alkaline Phosphatase Total Protein Albumin Urine Color Urine Appearance Urine pH Ur Specific [place] Urine Protein Urine Glucose (UA) Urine Ketones Urine Blood Urine Nitrite Ur Leukocyte Esterase Urine RBC Urine WBC Ur Squamous Epith Cells Ur Renal Epithelial Cell Urine Bacteria Granular Casts WBC Casts Coronavirus (PCR) Influenza Type A (PCR) Influenza Type B (PCR) RSV RNA Qual (PCR) 05/07/21 05/07/21 05/07/21 12:11 14:07 15:23 MCV MCH MCHC RDW Plt Count MPV Immature Gran % (Auto) Neut % (Auto) Lymph % (Auto) [place] % (Auto) Eos % (Auto) Baso % (Auto) Lymph # (Auto) [place] # (Auto) Eos # (Auto) Baso # (Auto) Abs Immat Gran (auto) Absolute Neuts (auto) Absolute Nucleated RBC Nucleated RBC % (auto) PT INR Anion Gap Estim Creat Clear Calc Estimated GFR POC Glucose 291 H 256 H Random Glucose Lactic Acid Lactic Acid Fup @ 2Hr Calcium Magnesium Total Bilirubin Direct Bilirubin AST ALT Alkaline Phosphatase Total Protein Albumin Urine Color DK YELLOW Urine Appearance HAZY Urine pH 6.0 Ur Specific [place] 1.025 Urine Protein 2+ H Urine Glucose (UA) >=1000 H Urine Ketones NEG Urine Blood 2+ H Urine Nitrite NEG Ur Leukocyte Esterase NEG Urine RBC 0-2 Urine WBC 0-2 Ur Squamous Epith Cells NONE Ur Renal Epithelial Cell TRACE Urine Bacteria 1+ Granular Casts 1-4 WBC Casts 0-2 Coronavirus (PCR) Influenza Type A (PCR) Influenza Type B (PCR) RSV RNA Qual (PCR) 05/07/21 05/08/21 05/08/21 23:52 05:32 05:32 MCV 68.7 L MCH 24.0 L MCHC 34.9 RDW 13.2 Plt Count 189 MPV 10.9 Immature Gran % (Auto) 0.9 H Neut % (Auto) 86.0 H Lymph % (Auto) 5.9 L [place] % (Auto) 7.1 Eos % (Auto) 0.0 Baso % (Auto) 0.1 Lymph # (Auto) 0.5 L [place] # (Auto) 0.7 Eos # (Auto) 0.0 Baso # (Auto) 0.0 Abs Immat Gran (auto) 0.08 H Absolute Neuts (auto) 7.9 Absolute Nucleated RBC 0.000 Nucleated RBC % (auto) 0.0 PT INR Anion Gap 11 L Estim Creat Clear Calc 103.0 Estimated GFR > 60 POC Glucose 296 H Random Glucose 238 H Lactic Acid Lactic Acid Fup @ 2Hr Calcium 7.9 L D Magnesium Total Bilirubin 2.3 H Direct Bilirubin 1.4 H AST 61 H ALT 35 Alkaline Phosphatase 56 Total Protein 5.6 L Albumin 3.1 L Urine Color Urine Appearance Urine pH Ur Specific [place] Urine Protein Urine Glucose (UA) Urine Ketones Urine Blood Urine Nitrite Ur Leukocyte Esterase Urine RBC Urine WBC Ur Squamous Epith Cells Ur Renal Epithelial Cell Urine Bacteria Granular Casts WBC Casts Coronavirus (PCR) Influenza Type A (PCR) Influenza Type B (PCR) RSV RNA Qual (PCR) 05/08/21 08:41 MCV MCH MCHC RDW Plt Count MPV Immature Gran % (Auto) Neut % (Auto) Lymph % (Auto) [place] % (Auto) Eos % (Auto) Baso % (Auto) Lymph # (Auto) [place] # (Auto) Eos # (Auto) Baso # (Auto) Abs Immat Gran (auto) Absolute Neuts (auto) Absolute Nucleated RBC Nucleated RBC % (auto) PT INR Anion Gap Estim Creat Clear Calc Estimated GFR POC Glucose 227 H Random Glucose Lactic Acid Lactic Acid Fup @ 2Hr Calcium Magnesium Total Bilirubin Direct Bilirubin AST ALT Alkaline Phosphatase Total Protein Albumin Urine Color Urine Appearance Urine pH Ur Specific [place] Urine Protein Urine Glucose (UA) Urine Ketones Urine Blood Urine Nitrite Ur Leukocyte Esterase Urine RBC Urine WBC Ur Squamous Epith Cells Ur Renal Epithelial Cell Urine Bacteria Granular Casts WBC Casts Coronavirus (PCR) Influenza Type A (PCR) Influenza Type B (PCR) RSV RNA Qual (PCR) Assessment and Plan (1) Pneumonia: Status: Acute Assessment and Plan: This is a 61 yo M with a PMH of DM, HTN, HLD who presents to the hospital with multiple complaints including shortness of breath, cough, diarrhea, generalized malaise, loss of appetite. He developed these symptoms while on a cruise. His presentation is concerning for suspected legionella. 1. Pneumonia continued to spike temp all night Given his constellation of symptoms, hyponatremia, GI symptoms, travel aboard a cruise ship -- Legionella is suspected. F/u Urine Legionella studies IV rocephin / zithromax - day #2 follow cultures 2. HypoNa likely hypovoluemic + partially pseudo from hyperglycemia will give gentle hydration 3. Acute hepatitis Bili downtrending due to acute infection suspected from acute infection 4. Hyperglycemia due to uncontrolled DM better control continue lantus + sliding scale 5. RA ? on prednisone + Humira continue steroids, hold Humira Full Code DVT pptx, lovenox Quality Stroke Does the patient have a stroke diagnosis?: No VTE Prior VTE?: No VTE Risk Level:: Medical - moderate - high VTE Device Contraindication: N/A - Device Ordered VTE Drug Contraindication: Treatment Not Indicated
[2021-05-08] MEDS: predniSONE 1 MG TABLET 3 MG PO (09:10)
[2021-05-08] MEDS: Gabapentin 300 MG CAPSULE 600 MG PO ×2 (09:10→21:07)
[2021-05-08] MEDS: amLODIPine Besylate 10 MG TABLET PO (09:11)
[2021-05-08] MEDS: Folic Acid 1 MG TABLET PO ×2 (09:11→21:07)
[2021-05-08] MEDS: predniSONE 5 MG TABLET 10 MG PO (09:11)
[2021-05-08] MEDS: Sertraline HCL 100 MG TABLET PO (09:11)
[2021-05-08] MEDS: Aspirin 81 MG TAB.CHEW PO (09:11)
[2021-05-08 09:47] LABS: Lactic Acid 2.1 mmol/L (0.5-2.0)
[2021-05-08] MEDS: cefTRIAXone sodium 1 GM in 0.9 % Sodium Chloride 50 ML IV (09:52)
[2021-05-08] MEDS: guaiFENesin DM 600/30 1 TAB TAB.ER.12H 2 TAB PO ×2 (10:41→21:07)
[2021-05-08] MEDS: Lactated Ringers 1,000 ML 999 ML IV (10:43)
--- NOTE | 2021-05-08 10:52 | MHC.CDI.CONC ---
CDI Concurrent Query Documentation Clarification: PHYSICIAN'S DOCUMENTATION REQUEST Date of Query: 05/08/21 1052 Patient Name: Alber Vazquez Admit Date: 05/07/21 Dear Doctor, A review of the medical record indicates additional documentation may be needed. Please review below and update the documentation accordingly. Clinical Indicators: The following diagnoses or signs and symptoms were noted in the patient record: Lab Tests: Risk Factors/Clinical Indicators/Treatments LABS: magnesium 1.3 L IV magnesium sulfate in Ed Based on the above, could you clarify in the Progress Notes the appropriate diagnosis, if significant, that supports the above abnormalities and additional evaluation, monitoring, and/or treatment rendered: Hypomagnesemia or other etiology of lab results Labs indicate a diagnosis of (please specify) Other (please specify) Unable to determine Use of terms such as suspected, likely, concern for, or probable (associated with a specific diagnosis that is being evaluated, monitored, or treated as if it exists) are acceptable and can be coded in the inpatient setting, when documented at the time of discharge. Thank you, Lorenza Conner [facility], CDIS Extension: [phone] Please use your independent medical judgment in providing your response. THIS QUERY IS PART OF THE PERMANENT MEDICAL RECORD Provider Response: Other Other Diagnosis: HypoMg
[2021-05-08 11:25] LABS: Reflex Lactate? Lactic Acid Added
[2021-05-08 11:36] LABS: Magnesium 1.8 mg/dL (1.6-2.6)
[2021-05-08 11:56] LABS: ~Lactic Acid-LAB USE ONLY 1.7 mmol/L (0.5-2.0)
[2021-05-08 11:58] LABS: Glucose, Whole Blood 285 mg/dL (60-115)
[2021-05-08] MEDS: Azithromycin 500 MG in 0.9 % Sodium Chloride 250 ML 125 MG IV (12:17)
[2021-05-08] MEDS: Enoxaparin Sodium 40 MG/0.4 ML SYRINGE SUBCUT (12:23)
--- NOTE | 2021-05-08 13:52 | MHC.CLN ---
NUTRITION PATIENT REPORTS POOR INTAKE SINCE ACUTE ILLNESS. USUALLY EATS WELL. REPORTED TO THIS STUDY DIRECTOR THAT WEIGHT HAS BEEN STABLE. WEIGHT HX SHOWS WEIGHT STABLE X 3 MONTHS. RECOMMEND DIABETIC 2200 KCAL (27.2 KCAL/KG IBW).
--- NOTE | 2021-05-08 14:46 | MHC.CM.PN ---
PATIENT LIVES WITH HCP/ (COPY REQUESTED) HE SUES A CANE TO ASSIST WITH AMBULATION. REPORTS THAT HE FELL A FEW DAYS AGO THOUGH AFTER LOSING BALANCE. PATIENT IS 100% [facility] CONNECTED. 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 DR LUBIN OF [place] IS PCP. CASE MANAGEMENT FOLLOWING
[2021-05-08 16:35] LABS: Glucose, Whole Blood 276 mg/dL (60-115)
--- NOTE | 2021-05-08 18:50 | PC.NURSE ---
Patient Noy Campo had critical lactic acid value of 2.1 reported on 05/08 at 09:00am.
[2021-05-08 20:17] LABS: Glucose, Whole Blood 256 mg/dL (60-115)
[2021-05-09] VITALS (9 sets, daily range): BP systolic 127–180; BP diastolic 61–90; PULSE 87–112; RESP 16–18; TEMP 36.1–38.3; O2SAT 93–97
[2021-05-09] MEDS: Acetaminophen 325 MG TABLET 650 MG PO ×2 (03:55→10:50)
[2021-05-09 05:53] LABS: Hematocrit 31.4 % (42-52); Hemoglobin 11.1 g/dl (14.0-18.0); Mean Corpuscular HGB Conc 35.4 g/dl (31.0-36.0); Mean Corpuscular Hemoglobin 24.2 pg (27.0-33.0); Mean Corpuscular Volume 68.4 fL (80-98); Mean Platelet Volume 11.8 fL (9.4-12.4); Platelet Count 198 X10*3/uL (160-400); Red Blood Count 4.59 X10*6/uL (4.60-5.80); Red Cell Distribution Width 13.2 % (11.0-16.0); White Blood Count 8.1 X10*3/uL (4.8-10.8)
[2021-05-09] MEDS: Omeprazole 20 MG CAPSULE.DR PO (06:19)
[2021-05-09 06:23] LABS: Alanine Aminotransferase 59 U/L (0-40); Albumin Level 3.2 g/dL (3.5-5.0); Alkaline Phosphatase 62 U/L (39-117); Anion Gap 15 (12-20); Aspartate Amino Transferase 119 U/L (5-37); Bilirubin Direct 1.1 mg/dL (0.0-0.5); Blood Urea Nitrogen 17 mg/dL (9-16); Calcium 8.4 mg/dL (8.4-10.2); Carbon Dioxide 20 mmol/L (22-29); Chloride 99 mmol/L (96-108); Creatinine Clr Calc Pharmacy 107.7; Estimated Glomerular Filt Rate > 60; Glucose Random 206 mg/dL (60-115); Potassium 3.6 mmol/L (3.3-5.1); Sodium 130 mmol/L (135-145); Total Protein 5.8 g/dL (6.5-8.0)
[2021-05-09 07:24] LABS: Glucose, Whole Blood 197 mg/dL (60-115)
[2021-05-09] MEDS: predniSONE 5 MG TABLET 10 MG PO (07:58)
[2021-05-09] MEDS: guaiFENesin DM 600/30 1 TAB TAB.ER.12H 2 TAB PO ×2 (07:59→21:10)
[2021-05-09] MEDS: predniSONE 1 MG TABLET 3 MG PO (07:59)
[2021-05-09] MEDS: Sertraline HCL 100 MG TABLET PO (08:00)
[2021-05-09] MEDS: amLODIPine Besylate 10 MG TABLET PO (08:00)
[2021-05-09] MEDS: Folic Acid 1 MG TABLET PO ×2 (08:02→21:10)
[2021-05-09] MEDS: Aspirin 81 MG TAB.CHEW PO (08:02)
[2021-05-09] MEDS: Gabapentin 300 MG CAPSULE 600 MG PO ×2 (08:02→21:10)
[2021-05-09] MEDS: Insulin Lispro 100 UNIT/ML 3 ML VIAL SUBCUT ×4 (08:04→21:10)
--- NOTE | 2021-05-09 10:30 | HO.PM.IMPN ---
Subjective Subjective Date of Service: 05/09/21 Interval History: And examined this morning Follow-up for pneumonia Continued to have fever overnight Clinically reports feeling better this morning other than sweating overnight Review of Systems Review of Systems: Yes all other systems are reviewed and are negative Constitutional Constitutional: Reports fever(s) Cardiovascular Cardiovascular: Denies chest pain Respiratory Respiratory: Denies cough Gastrointestinal Gastrointestinal: Denies abdominal pain Physical Exam Vital Signs: Vital Signs: Last Vital Signs Temp 97.2 F 05/09/21 07:22 Pulse 92 05/09/21 08:00 Resp 16 05/09/21 07:22 BP 153/74 H 05/09/21 07:22 Pulse Ox 95 05/09/21 07:22 Oxygen Flow Rate 3 05/07/21 19:27 Body Mass Index 30.5 Const: Nutritional Appearance: well nourished Orientation/consciousness: patient oriented x3 HENMT: Head: Yes normocephalic and Yes atraumatic Eyes: Sclerae: sclerae normal Chest: Chest palpation & inspection: normal inspection of the chest Resp: Other: small, shallow breaths Effort & Inspection: decreased respiratory effort and no respiratory distress Auscultation: diminished lung sounds Cardio: Rate: regular rate Rhythm: regular rhythm GI: Palpation (GI): Soft to palpation and nontender Neuro: General: patient oriented x3 Cranial nerves: Yes CN's II-XII intact bilaterally and Yes Bilaterally intact EOM present Objective Data Active Medications Acetaminophen (Acetaminophen 325 Mg Tablet) 650 mg PO Q6H PRN PRN Reason: Pain, Mild (Pain Scale 1-3) Last Admin: 05/09/21 03:55 Dose: 650 mg Documented by: ELMO Amlodipine Besylate (Amlodipine Besylate 10 Mg Tablet) 10 mg PO DAILY [facility]; Protocol Last Admin: 05/09/21 08:00 Dose: 10 mg Documented by: RIAN Aspirin (Aspirin 81 Mg Tab.Chew) 81 mg PO DAILY [facility] Last Admin: 05/09/21 08:02 Dose: 81 mg Documented by: RIAN Dorzolamide/Timolol (Dorzolamide/Timolo 2.23%/0.68% 10 Ml Drbtl) 1 drop EYE-BOTH BID [facility] Last Admin: 05/08/21 21:15 Dose: Not Given Documented by: ELMO Non-Admin Reason: Patient Refused Enoxaparin Sodium (Enoxaparin Sodium 40 Mg/0.4 Ml Syringe) 40 mg SUBCUT Q24H [facility] Last Admin: 05/08/21 12:23 Dose: 40 mg Documented by: JUANA Folic Acid (Folic Acid 1 Mg Tablet) 1 mg PO BID [facility] Last Admin: 05/09/21 08:02 Dose: 1 mg Documented by: RIAN Gabapentin (Gabapentin 300 Mg Capsule) 600 mg PO BID [facility] Last Admin: 05/09/21 08:02 Dose: 600 mg Documented by: RIAN Guaifenesin/Dextromethorphan (Guaifenesin Dm 600/30 1 Tab Tab.Er.12h) 2 tab PO BID [facility] Last Admin: 05/09/21 07:59 Dose: 2 tab Documented by: RIAN Ceftriaxone Sodium 1 gm/ (Sodium Chloride) 50 mls @ 100 mls/hr IV Q24H [facility] Last Infusion: 05/08/21 10:52 Dose: 0 mls/hr Documented by: JUANA Azithromycin 500 mg/ Sodium (Chloride) 250 mls @ 125 mls/hr IV Q24H [facility] Last Infusion: 05/08/21 14:49 Dose: 0 mls/hr Documented by: JUANA Insulin Glargine (Insulin Glargine,Hum.Rec.Anlog 100 Unit/Ml 10 Ml Vial) 40 unit SUBCUT BEDTIME [facility] Last Admin: 05/08/21 21:08 Dose: 40 unit Documented by: ELMO Insulin Human Lispro (Insulin Lispro 100 Unit/Ml 3 Ml Vial) 0 unit SUBCUT QIDACHS [facility]; Protocol Last Admin: 05/09/21 08:04 Dose: 2 unit Documented by: RIAN Omeprazole (Omeprazole 20 Mg Capsule.Dr) 20 mg PO DAILY@0630 [facility] Last Admin: 05/09/21 06:19 Dose: 20 mg Documented by: ELMO Ondansetron HCl (Ondansetron Hcl 4 Mg/2 Ml Vial) 4 mg IVPUSH Q8H PRN PRN Reason: Nausea and Vomiting Pharmacy Consult (Consult Rx Perform Med Rec) 1 each MISCELLANE ONCE PRN PRN Reason: Consult order Prednisolone Acetate (Prednisolone Acetate 1 % Oph Susp 5 Ml Drpbtl) 1 drop EYE-BOTH DAILY [facility] Last Admin: 05/08/21 09:21 Dose: Not Given Documented by: JUANA Non-Admin Reason: Patient Refused Prednisone (Prednisone 5 Mg Tablet) 10 mg PO DAILY [facility] Last Admin: 05/09/21 07:58 Dose: 10 mg Documented by: RIAN Prednisone (Prednisone 1 Mg Tablet) 3 mg PO DAILY [facility] Last Admin: 05/09/21 07:59 Dose: 3 mg Documented by: RIAN Sertraline HCl (Sertraline Hcl 100 Mg Tablet) 100 mg PO DAILY [facility] Last Admin: 05/09/21 08:00 Dose: 100 mg Documented by: RIAN Sodium Chloride (0.9 % Sodium Chloride Flush 3 Ml Syringe) 3 ml IVFLUSH QSHIFT [facility] Last Admin: 05/08/21 21:08 Dose: 3 ml Documented by: ELMO Valacyclovir HCl (Valacycyclovir Hcl 1,000 Mg Tablet) 1,000 mg PO BID [facility] Last Admin: 05/09/21 08:01 Dose: 1,000 mg Documented by: RIAN Labs CBC & Chem 7: 05/09/21 05:13 05/09/21 05:13 Labs: Laboratory Results - last 24 hr 05/08/21 05/08/21 05/08/21 05:32 11:41 11:47 MCV MCH MCHC RDW Plt Count MPV Absolute Nucleated RBC Nucleated RBC % (auto) Anion Gap Estim Creat Clear Calc Estimated GFR POC Glucose 285 H Random Glucose Lactic Acid Fup @ 2Hr 1.7 Calcium Magnesium 1.8 Total Bilirubin Direct Bilirubin AST ALT Alkaline Phosphatase Total Protein Albumin 05/08/21 05/08/21 05/09/21 16:30 20:01 05:13 MCV 68.4 L MCH 24.2 L MCHC 35.4 RDW 13.2 Plt Count 198 MPV 11.8 Absolute Nucleated RBC 0.000 Nucleated RBC % (auto) 0.0 Anion Gap Estim Creat Clear Calc Estimated GFR POC Glucose 276 H 256 H Random Glucose Lactic Acid Fup @ 2Hr Calcium Magnesium Total Bilirubin Direct Bilirubin AST ALT Alkaline Phosphatase Total Protein Albumin 05/09/21 05/09/21 05:13 07:06 MCV MCH MCHC RDW Plt Count MPV Absolute Nucleated RBC Nucleated RBC % (auto) Anion Gap 15 Estim Creat Clear Calc 107.7 Estimated GFR > 60 POC Glucose 197 H Random Glucose 206 H Lactic Acid Fup @ 2Hr Calcium 8.4 D Magnesium Total Bilirubin 2.0 H Direct Bilirubin 1.1 H AST 119 H ALT 59 H Alkaline Phosphatase 62 Total Protein 5.8 L Albumin 3.2 L Microbiology Microbiology Results: Microbiology 05/07/21 09:22 Blood Culture - Preliminary Blood - Venous No growth after 24 hours. 05/07/21 09:20 Blood Culture - Preliminary Blood - Venous No growth after 24 hours. Assessment and Plan (1) Acute hyponatremia: Status: Acute (2) Pneumonia: Status: Acute Assessment and Plan: This is a 61 yo M with a PMH of DM, HTN, HLD who presents to the hospital with multiple complaints including shortness of breath, cough, diarrhea, generalized malaise, loss of appetite. He developed these symptoms while on a cruise. His presentation is concerning for suspected legionella. 1. Pneumonia continued to spike temp overnight Given his constellation of symptoms, hyponatremia, GI symptoms, travel aboard a cruise ship -- Legionella is suspected. F/u Urine Legionella studies Will check RPP IV rocephin / zithromax - day #3 follow cultures 2. HypoNa improving, 130 today likely hypovoluemic + partially pseudo from hyperglycemia 3. Acute hepatitis Bili downtrending suspected from acute infection 4. Hyperglycemia due to uncontrolled DM better control continue lantus + sliding scale 5. RA ? on prednisone + Humira continue steroids, hold Humira 6. HTN continue norvasc Full Code DVT pptx, lovenox Attending: Dr. Diaz Quality Stroke Does the patient have a stroke diagnosis?: No VTE Prior VTE?: No VTE Risk Level:: Medical - moderate - high VTE Device Contraindication: N/A - Device Ordered VTE Drug Contraindication: Treatment Not Indicated
[2021-05-09] MEDS: cefTRIAXone sodium 1 GM in 0.9 % Sodium Chloride 50 ML IV (10:51)
[2021-05-09] MEDS: 0.9 % Sodium Chloride Flush 3 ML SYRINGE IVFLUSH ×3 (10:56→21:11)
[2021-05-09 11:35] LABS: Adenovirus PCR Not Detected (Not Detect.); Bordetella parapertussis PCR Not Detected (Not Detect.); Bordetella pertussis PCR Not Detected (Not Detect.); Chlamydia pneumoniae PCR Not Detected (Not Detect.); Coronavirus 229E PCR Not Detected (Not Detect.); Coronavirus HKU1 PCR Not Detected (Not Detect.); Coronavirus NL63 PCR Not Detected (Not Detect.); Coronavirus OC43 PCR Not Detected (Not Detect.); Human metapneumovirus PCR Not Detected (Not Detect.); Influenza A PCR Not Detected (Not Detect.); Influenza B PCR Not Detected (Not Detect.); Mycoplasma pneumoniae PCR Not Detected (Not Detect.); Parainfluenza 1 PCR Not Detected (Not Detect.); Parainfluenza 2 PCR Not Detected (Not Detect.); Parainfluenza 3 PCR Not Detected (Not Detect.); Parainfluenza 4 PCR Not Detected (Not Detect.); RSV PCR Not Detected (Not Detect.); Rhino/Enterovirus PCR Not Detected (Not Detect.); SARS-CoV-2 PCR Not Detected (Not Detect.)
[2021-05-09 12:00] LABS: Glucose, Whole Blood 287 mg/dL (60-115)
[2021-05-09] MEDS: Azithromycin 500 MG in 0.9 % Sodium Chloride 250 ML 125 MG IV (14:02)
[2021-05-09 16:43] LABS: Procalcitonin 10.34 ng/mL
[2021-05-09 17:06] LABS: Glucose, Whole Blood 288 mg/dL (60-115)
[2021-05-09 20:24] LABS: Glucose, Whole Blood 261 mg/dL (60-115)
[2021-05-09] MEDS: Insulin Glargine,Hum.rec.anlog 100 UNIT/ML 10 ML VIAL 40 UNIT SUBCUT (21:10)
[2021-05-10] VITALS (7 sets, daily range): BP systolic 139–166; BP diastolic 70–80; PULSE 83–102; RESP 16–19; TEMP 36.2–37.3; O2SAT 92–97
[2021-05-10] MEDS: Acetaminophen 325 MG TABLET 650 MG PO ×2 (03:52→09:28)
[2021-05-10] MEDS: Omeprazole 20 MG CAPSULE.DR PO (05:58)
[2021-05-10 06:08] LABS: Anion Gap 11 (12-20); Blood Urea Nitrogen 17 mg/dL (9-16); Calcium 8.5 mg/dL (8.4-10.2); Carbon Dioxide 23 mmol/L (22-29); Chloride 101 mmol/L (96-108); Creatinine Clr Calc Pharmacy 127.8; Estimated Glomerular Filt Rate > 60; Glucose Random 121 mg/dL (60-115); Potassium 3.4 mmol/L (3.3-5.1); Sodium 132 mmol/L (135-145)
[2021-05-10 07:53] LABS: Glucose, Whole Blood 134 mg/dL (60-115)
[2021-05-10 08:54] LABS: Alanine Aminotransferase 80 U/L (0-40); Alkaline Phosphatase 64 U/L (39-117); Aspartate Amino Transferase 155 U/L (5-37); Bilirubin Direct 0.8 mg/dL (0.0-0.5); Bilirubin Total 1.3 mg/dL (0.0-1.0); Total Protein 5.5 g/dL (6.5-8.0)
[2021-05-10] MEDS: 0.9 % Sodium Chloride Flush 3 ML SYRINGE IVFLUSH ×3 (09:11→21:19)
[2021-05-10] MEDS: cefTRIAXone sodium 1 GM in 0.9 % Sodium Chloride 50 ML IV (09:12)
[2021-05-10] MEDS: predniSONE 1 MG TABLET 3 MG PO (09:13)
[2021-05-10] MEDS: Folic Acid 1 MG TABLET PO ×2 (09:13→21:18)
[2021-05-10] MEDS: Aspirin 81 MG TAB.CHEW PO (09:13)
[2021-05-10] MEDS: Gabapentin 300 MG CAPSULE 600 MG PO ×2 (09:13→21:18)
[2021-05-10] MEDS: guaiFENesin DM 600/30 1 TAB TAB.ER.12H 2 TAB PO ×2 (09:13→21:18)
[2021-05-10] MEDS: Sertraline HCL 100 MG TABLET PO (09:14)
[2021-05-10] MEDS: predniSONE 5 MG TABLET 10 MG PO (09:14)
[2021-05-10] MEDS: amLODIPine Besylate 10 MG TABLET PO (09:14)
--- NOTE | 2021-05-10 11:15 | MHC.CM.PN ---
PATIENT IS OFF-BALANCE. PLAN IS FOR CT SCAN TODAY. NO DC PLANNED FOR TODAY
[2021-05-10] MEDS: Azithromycin 500 MG in 0.9 % Sodium Chloride 250 ML 125 MG IV (11:45)
[2021-05-10 11:53] LABS: Glucose, Whole Blood 153 mg/dL (60-115)
--- NOTE | 2021-05-10 13:50 | HO.PM.IMPN ---
Subjective Subjective Date of Service: 05/10/21 Interval History: Seen and examined this morning Follow-up for pneumonia. No fevers overnight. Patient reports feeling off balance when walking around. It is unclear when this began, although he states it has been present for several days but has not mentioned it before. Review of Systems Review of Systems: Yes all other systems are reviewed and are negative Constitutional Constitutional: Denies chills and Denies fever(s) Cardiovascular Cardiovascular: Denies chest pain Gastrointestinal Gastrointestinal: Denies abdominal pain Physical Exam Vital Signs: Vital Signs: Last Vital Signs Temp 99.0 F 05/10/21 11:19 Pulse 88 05/10/21 11:19 Resp 18 05/10/21 11:19 BP 144/70 H 05/10/21 11:19 Pulse Ox 92 05/10/21 11:19 Oxygen Flow Rate 3 05/07/21 19:27 Body Mass Index 30.5 Const: Nutritional Appearance: well nourished Orientation/consciousness: patient oriented x3 HENMT: Head: Yes normocephalic and Yes atraumatic Eyes: Sclerae: sclerae normal Pupils: Equal, round and reactive pupils present Chest: Chest palpation & inspection: normal inspection of the chest Resp: Effort & Inspection: normal respiratory effort and no respiratory distress Cardio: Rate: regular rate Rhythm: regular rhythm GI: Palpation (GI): Soft to palpation and nontender Neuro: Other: equal strength throughout; face symmetrical; PERRL, EOMI; speech clear General: patient oriented x3 Cranial nerves: Yes CN's II-XII intact bilaterally, Yes Equal, round and reactive pupils present and Yes Bilaterally intact EOM present Cognition (Neuro): normal cognition Objective Data Active Medications Acetaminophen (Acetaminophen 325 Mg Tablet) 650 mg PO Q6H PRN PRN Reason: Pain, Mild (Pain Scale 1-3) Last Admin: 05/10/21 09:28 Dose: 650 mg Documented by: JEFF Amlodipine Besylate (Amlodipine Besylate 10 Mg Tablet) 10 mg PO DAILY [facility]; Protocol Last Admin: 05/10/21 09:14 Dose: 10 mg Documented by: JEFF Aspirin (Aspirin 81 Mg Tab.Chew) 81 mg PO DAILY [facility] Last Admin: 05/10/21 09:13 Dose: 81 mg Documented by: JEFF Dorzolamide/Timolol (Dorzolamide/Timolo 2.23%/0.68% 10 Ml Drbtl) 1 drop EYE-BOTH BID [facility] Last Admin: 05/10/21 09:18 Dose: Not Given Documented by: JEFF Non-Admin Reason: Patient Refused Enoxaparin Sodium (Enoxaparin Sodium 40 Mg/0.4 Ml Syringe) 40 mg SUBCUT Q24H [facility] Last Admin: 05/09/21 15:22 Dose: Not Given Documented by: RIAN Non-Admin Reason: Patient Asleep Folic Acid (Folic Acid 1 Mg Tablet) 1 mg PO BID [facility] Last Admin: 05/10/21 09:13 Dose: 1 mg Documented by: JEFF Gabapentin (Gabapentin 300 Mg Capsule) 600 mg PO BID [facility] Last Admin: 05/10/21 09:13 Dose: 600 mg Documented by: JEFF Guaifenesin/Dextromethorphan (Guaifenesin Dm 600/30 1 Tab Tab.Er.12h) 2 tab PO BID [facility] Last Admin: 05/10/21 09:13 Dose: 2 tab Documented by: JEFF Ceftriaxone Sodium 1 gm/ (Sodium Chloride) 50 mls @ 100 mls/hr IV Q24H [facility] Last Infusion: 05/10/21 09:45 Dose: 0 mls/hr Documented by: JEFF Azithromycin 500 mg/ Sodium (Chloride) 250 mls @ 125 mls/hr IV Q24H [facility] Last Admin: 05/10/21 11:45 Dose: 125 mls/hr Documented by: JEFF Insulin Glargine (Insulin Glargine,Hum.Rec.Anlog 100 Unit/Ml 10 Ml Vial) 40 unit SUBCUT BEDTIME [facility] Last Admin: 05/09/21 21:10 Dose: 40 unit Documented by: ELMO Insulin Human Lispro (Insulin Lispro 100 Unit/Ml 3 Ml Vial) 0 unit SUBCUT QIDACHS [facility]; Protocol Last Admin: 05/10/21 11:53 Dose: Not Given Documented by: JEFF Non-Admin Reason: Patient Refused Comments: poc 153 Omeprazole (Omeprazole 20 Mg Capsule.Dr) 20 mg PO DAILY@0630 [facility] Last Admin: 05/10/21 05:58 Dose: 20 mg Documented by: ELMO Ondansetron HCl (Ondansetron Hcl 4 Mg/2 Ml Vial) 4 mg IVPUSH Q8H PRN PRN Reason: Nausea and Vomiting Pharmacy Consult (Consult Rx Perform Med Rec) 1 each MISCELLANE ONCE PRN PRN Reason: Consult order Prednisolone Acetate (Prednisolone Acetate 1 % Oph Susp 5 Ml Drpbtl) 1 drop EYE-BOTH DAILY [facility] Last Admin: 05/10/21 09:18 Dose: Not Given Documented by: JEFF Non-Admin Reason: Patient Refused Prednisone (Prednisone 5 Mg Tablet) 10 mg PO DAILY [facility] Last Admin: 05/10/21 09:14 Dose: 10 mg Documented by: JEFF Prednisone (Prednisone 1 Mg Tablet) 3 mg PO DAILY [facility] Last Admin: 05/10/21 09:13 Dose: 3 mg Documented by: JEFF Sertraline HCl (Sertraline Hcl 100 Mg Tablet) 100 mg PO DAILY [facility] Last Admin: 05/10/21 09:14 Dose: 100 mg Documented by: JEFF Sodium Chloride (0.9 % Sodium Chloride Flush 3 Ml Syringe) 3 ml IVFLUSH QSHIFT [facility] Last Admin: 05/10/21 09:11 Dose: 3 ml Documented by: JEFF Valacyclovir HCl (Valacycyclovir Hcl 1,000 Mg Tablet) 1,000 mg PO BID [facility] Last Admin: 05/10/21 09:14 Dose: 1,000 mg Documented by: JEFF Labs CBC & Chem 7: 05/09/21 05:13 05/10/21 05:26 Labs: Laboratory Results - last 24 hr 05/09/21 05/09/21 05/09/21 05:13 16:38 20:00 Anion Gap Estim Creat Clear Calc Estimated GFR POC Glucose 288 H 261 H Random Glucose Calcium Total Bilirubin Direct Bilirubin AST ALT Alkaline Phosphatase Total Protein Albumin Procalcitonin 10.34 05/10/21 05/10/21 05/10/21 05:26 07:15 11:08 Anion Gap 11 L Estim Creat Clear Calc 127.8 Estimated GFR > 60 POC Glucose 134 H 153 H Random Glucose 121 H D Calcium 8.5 Total Bilirubin 1.3 H Direct Bilirubin 0.8 H AST 155 H ALT 80 H Alkaline Phosphatase 64 Total Protein 5.5 L Albumin 3.0 L Procalcitonin Microbiology Microbiology Results: Microbiology 05/09/21 05:08 Blood Culture - Preliminary Blood - Venous No growth after 24 hours. 05/09/21 05:12 Blood Culture - Preliminary Blood - Venous No growth after 24 hours. 05/07/21 09:22 Blood Culture - Preliminary Blood - Venous No growth after 48 hours. 05/07/21 09:20 Blood Culture - Preliminary Blood - Venous No growth after 48 hours. Assessment and Plan (1) Unsteady gait: Status: Acute (2) Acute hyponatremia: Status: Acute (3) Pneumonia: Status: Acute Assessment and Plan: This is a 61 yo M with a PMH of DM, HTN, HLD who presents to the hospital with multiple complaints including shortness of breath, cough, diarrhea, generalized malaise, loss of appetite. He developed these symptoms while on a cruise. His presentation is concerning for suspected legionella. Unsteady gait unclear time of onset PT evaluation stat brain CT, further management based on results Pneumonia afebrile overnight Given his constellation of symptoms, hyponatremia, GI symptoms, travel aboard a cruise ship -- Legionella is suspected. F/u Urine Legionella studies RPP negative IV rocephin / zithromax - day #4 BCx negative HypoNa improving, 132 today likely hypovoluemic + partially pseudo from hyperglycemia Acute hepatitis suspected from acute infection bili downtrending, but ALT, AST increasing follow LFTs hold statin Hyperglycemia due to uncontrolled DM better control continue lantus + sliding scale RA ? on prednisone + Humira continue steroids, hold Humira HTN continue norvasc HLD statin on hold Full Code DVT pptx, lovenox Attending: Dr. Diaz Quality Stroke Does the patient have a stroke diagnosis?: No VTE Prior VTE?: No VTE Risk Level:: Medical - moderate - high VTE Device Contraindication: N/A - Device Ordered VTE Drug Contraindication: Treatment Not Indicated
[2021-05-10] MEDS: Enoxaparin Sodium 40 MG/0.4 ML SYRINGE SUBCUT (14:24)
[2021-05-10 17:06] LABS: Glucose, Whole Blood 220 mg/dL (60-115)
--- NOTE | 2021-05-10 18:22 | ECG_ITS ---
Test Reason : RYTHM CHANGE Blood Pressure : / mmHG Vent. Rate : 084 BPM Atrial Rate : 084 BPM P-R Int : 134 ms QRS Dur : 112 ms QT Int : 388 ms P-R-T Axes : 065 -49 066 degrees QTc Int : 458 ms Normal sinus rhythm Possible Left atrial enlargement Left anterior fascicular block Left ventricular hypertrophy Abnormal ECG No previous ECGs available Referred By: Kylie Neal Electronically Signed By:DILLON CABAN MD
[2021-05-10 21:00] LABS: Glucose, Whole Blood 230 mg/dL (60-115)
[2021-05-10] MEDS: Insulin Glargine,Hum.rec.anlog 100 UNIT/ML 10 ML VIAL 40 UNIT SUBCUT (21:18)
[2021-05-10] MEDS: Insulin Lispro 100 UNIT/ML 3 ML VIAL SUBCUT (21:18)
[2021-05-11 03:16] VITALS: BP 134/63; PULSE 80; RESP 16; TEMP 36.5; O2SAT 96
[2021-05-11] MEDS: Omeprazole 20 MG CAPSULE.DR PO (05:51)
[2021-05-11] MEDS: Acetaminophen 325 MG TABLET 650 MG PO (05:55)
[2021-05-11 07:41] VITALS: BP 155/74; PULSE 79; RESP 18; TEMP 36; O2SAT 95
[2021-05-11 08:01] VITALS: BP 155/74; PULSE 79
[2021-05-11] MEDS: amLODIPine Besylate 10 MG TABLET PO (08:01)
[2021-05-11] MEDS: Sertraline HCL 100 MG TABLET PO (08:01)
[2021-05-11] MEDS: predniSONE 1 MG TABLET 3 MG PO (08:01)
[2021-05-11] MEDS: predniSONE 5 MG TABLET 10 MG PO (08:01)
[2021-05-11] MEDS: guaiFENesin DM 600/30 1 TAB TAB.ER.12H 2 TAB PO ×2 (08:01→21:27)
[2021-05-11] MEDS: Folic Acid 1 MG TABLET PO ×2 (08:02→21:27)
[2021-05-11] MEDS: cefTRIAXone sodium 1 GM in 0.9 % Sodium Chloride 50 ML IV (08:02)
[2021-05-11] MEDS: Gabapentin 300 MG CAPSULE 600 MG PO ×2 (08:02→21:27)
[2021-05-11] MEDS: Aspirin 81 MG TAB.CHEW PO (08:02)
[2021-05-11] MEDS: prednisoLONE Acetate 1 % Oph Susp 5 ML DRPBTL 1 DROP EYE-BOTH (08:06)
[2021-05-11] MEDS: 0.9 % Sodium Chloride Flush 3 ML SYRINGE IVFLUSH ×2 (08:07→16:56)
[2021-05-11 08:14] LABS: Glucose, Whole Blood 99 mg/dL (60-115)
--- NOTE | 2021-05-11 11:22 | P.CNNE_ITS ---
History of Present Illness Data of Consult Service Date: 05/11/21 Primary Care Provider: ALDO [facility] Reason for consult: Stroke 61 years old man with underlying history of rheumatoid arthritis and hyper tension who was on a cruise when he got sick resulting in nausea vomiting type of illness. He had been vaccinated for COVID in the past. He also had complained of numbness of his left leg. There was no complaint of headache. A head CT was done that was okay and then an MRI was done revealing abnormalities prompting this consultation. Review of Systems Review of Systems: As reported in HPI but no palpitation chest pain visual symptoms or speech or language difficulty [facility] Past Medical History Medical History (Updated 05/11/21 @ 11:27 by Vishal Urbina MD) Diabetes Glaucoma HTN (hypertension) Hyperlipidemia Rheumatoid arteritis Surgical History Surgical History No pertinent past surgical history Social History Social History (Updated 05/07/21 @ 11:11 by Edmond Diaz MD) Household Members: Spouse Housing: Apartment Do you presently have visiting nurse or other home services: No Alcohol intake: former Patient Tobacco Use Status: Former Tobacco user service: Yes Current occupational status: retired [employer] Allergies Allergy/AdvReac Type Severity Reaction Status Date / Time No Known Allergies Allergy Verified 02/16/21 14:05 [No Known Allergies*] Active Medications: Current Medications Acetaminophen (Acetaminophen 325 Mg Tablet) 650 mg PO Q6H PRN PRN Reason: Pain, Mild (Pain Scale 1-3) Last Admin: 05/11/21 05:55 Dose: 650 mg Documented by: Amlodipine Besylate (Amlodipine Besylate 10 Mg Tablet) 10 mg PO DAILY [facility]; Protocol Last Admin: 05/11/21 08:01 Dose: 10 mg Documented by: Aspirin (Aspirin 81 Mg Tab.Chew) 81 mg PO DAILY [facility] Last Admin: 05/11/21 08:02 Dose: 81 mg Documented by: Dorzolamide/Timolol (Dorzolamide/Timolo 2.23%/0.68% 10 Ml Drbtl) 1 drop EYE- BOTH BID [facility] Last Admin: 05/11/21 08:04 Dose: Not Given Documented by: Enoxaparin Sodium (Enoxaparin Sodium 40 Mg/0.4 Ml Syringe) 40 mg SUBCUT Q24H [facility] Last Admin: 05/10/21 14:24 Dose: 40 mg Documented by: Folic Acid (Folic Acid 1 Mg Tablet) 1 mg PO BID [facility] Last Admin: 05/11/21 08:02 Dose: 1 mg Documented by: Gabapentin (Gabapentin 300 Mg Capsule) 600 mg PO BID [facility] Last Admin: 05/11/21 08:02 Dose: 600 mg Documented by: Guaifenesin/Dextromethorphan (Guaifenesin Dm 600/30 1 Tab Tab.Er.12h) 2 tab PO BID [facility] Last Admin: 05/11/21 08:01 Dose: 2 tab Documented by: Ceftriaxone Sodium 1 gm/ (Sodium Chloride) 50 mls @ 100 mls/hr IV Q24H [facility] Last Infusion: 05/11/21 10:26 Dose: Infused Documented by: Azithromycin 500 mg/ Sodium (Chloride) 250 mls @ 125 mls/hr IV Q24H [facility] Last Infusion: 05/10/21 14:29 Dose: Infused Documented by: Insulin Glargine (Insulin Glargine,Hum.Rec.Anlog 100 Unit/Ml 10 Ml Vial) 40 unit SUBCUT BEDTIME [facility] Last Admin: 05/10/21 21:18 Dose: 40 unit Documented by: Insulin Human Lispro (Insulin Lispro 100 Unit/Ml 3 Ml Vial) 0 unit SUBCUT QIDACHS [facility]; Protocol Last Admin: 05/11/21 08:33 Dose: Not Given Documented by: Omeprazole (Omeprazole 20 Mg Capsule.Dr) 20 mg PO DAILY@0630 [facility] Last Admin: 05/11/21 05:51 Dose: 20 mg Documented by: Ondansetron HCl (Ondansetron Hcl 4 Mg/2 Ml Vial) 4 mg IVPUSH Q8H PRN PRN Reason: Nausea and Vomiting Pharmacy Consult (Consult Rx Perform Med Rec) 1 each MISCELLANE ONCE PRN PRN Reason: Consult order Prednisolone Acetate (Prednisolone Acetate 1 % Oph Susp 5 Ml Drpbtl) 1 drop EYE-BOTH DAILY [facility] Last Admin: 05/11/21 08:06 Dose: 1 drop Documented by: Prednisone (Prednisone 5 Mg Tablet) 10 mg PO DAILY [facility] Last Admin: 05/11/21 08:01 Dose: 10 mg Documented by: Prednisone (Prednisone 1 Mg Tablet) 3 mg PO DAILY [facility] Last Admin: 05/11/21 08:01 Dose: 3 mg Documented by: Sertraline HCl (Sertraline Hcl 100 Mg Tablet) 100 mg PO DAILY [facility] Last Admin: 05/11/21 08:01 Dose: 100 mg Documented by: Sodium Chloride (0.9 % Sodium Chloride Flush 3 Ml Syringe) 3 ml IVFLUSH QSHIFT [facility] Last Admin: 05/11/21 08:07 Dose: 3 ml Documented by: Valacyclovir HCl (Valacycyclovir Hcl 1,000 Mg Tablet) 1,000 mg PO BID [facility] Last Admin: 05/11/21 08:02 Dose: 1,000 mg Documented by: Home Medications Medication Instructions Recorded Confirmed Last Taken Type amlodipine 10 mg tablet 10 mg PO DAILY 02/12/21 05/07/21 05/06/21 History atorvastatin 80 mg tablet 40 mg PO DAILY 02/12/21 05/07/21 05/06/21 History dorzolamide 22.3 mg-timolol 6.8 1 drp OPHTHALMIC (EYE) BID 02/12/21 05/07/21 05/06/21 History mg/mL eye drops dulaglutide 1.5 mg/0.5 mL 1.5 mg SUBCUT MO 02/12/21 05/07/21 05/06/21 History subcutaneous pen injector etodolac 400 mg tablet 400 mg PO BID 02/12/21 05/07/21 05/06/21 History folic acid 1 mg tablet 1 mg PO BID 02/12/21 05/07/21 05/06/21 History gabapentin 300 mg capsule 600 mg PO BID 02/12/21 05/07/21 05/06/21 History insulin glargine 100 unit/mL (3 60 unit SUBCUT BEDTIME 02/12/21 05/07/21 05/06/21 History mL) subcutaneous pen metformin 1,000 mg tablet 1,000 mg PO BID 02/12/21 05/07/21 05/06/21 History netarsudil 0.02 %-latanoprost 1 drp OPHTHALMIC (EYE) BEDTIME 02/12/21 05/07/21 05/06/21 History 0.005 % eye drops omeprazole 20 mg capsule,delayed 20 mg PO DAILY 02/12/21 05/07/21 05/06/21 History release sertraline 100 mg tablet 100 mg PO DAILY 0705/07/21 05/06/21 History aspirin 81 mg chewable tablet 81 mg PO DAILY 05/07/21 05/07/21 05/06/21 History glimepiride 4 mg tablet 1 tab PO DAILY 05/07/21 05/07/21 Unknown History prednisolone acetate 1 % eye 1 drp OPHTHALMIC (EYE) DAILY 05/07/21 05/07/21 05/06/21 History drops,suspension prednisone 1 mg tablet 3 mg PO DAILY 05/07/21 05/07/21 05/06/21 History prednisone 5 mg tablet 10 mg PO DAILY 05/07/21 05/07/21 05/06/21 History valacyclovir 1 gram tablet 1 tab PO BID 05/07/21 05/07/21 05/06/21 History Physical Exam Vital Signs: Vital Signs: Last Vital Signs Temp 96.8 F 05/11/21 07:41 Pulse 79 05/11/21 08:01 Resp 18 05/11/21 07:41 BP 155/74 H 05/11/21 08:01 Pulse Ox 95 05/11/21 07:41 Oxygen Flow Rate 3 05/07/21 19:27 Body Mass Index 30.5 Neuro: Other: He was alert and awake with normal spontaneity of speech fluency comprehension and wake and flat affect. Pupils were round reactive to light. Extraocular muscles were intact. Visual thomas full. Face was symmetrical. Tongue was midline. There was no pronator drift. Deep tendon reflexes were trace to absent with flexor plantars. Sqthnt-im-[id number] testing was normal. Speech was normal. Results Labs CBC & Chem 7: 05/09/21 05:13 05/10/21 05:26 Labs: His noncontrast head CT did not reveal any significant abnormality. Minimal punctate hyperintensities were noted on for MRI of brain on FLAIR sequence. Couple of them were noted on DWI but I was not fully convinced that it revealed multiple infarctions. Carotid ultrasound did not reveal any significant abnormality. Microbiology Microbiology Results: Microbiology 05/09/21 05:08 Blood - Venous Blood Culture - Preliminary No growth after 48 hours. 05/09/21 05:12 Blood - Venous Blood Culture - Preliminary No growth after 48 hours. 05/07/21 09:22 Blood - Venous Blood Culture - Preliminary No growth after 48 hours. 05/07/21 09:20 Blood - Venous Blood Culture - Preliminary No growth after 48 hours. Assessment and Plan (1) Encephalopathy: Status: Acute 61 years old man with underlying hypertension and diabetes to came to hospital with not feeling well nausea and vomiting. He was afebrile. His chest evaluation was suggestive of infection. Overall etiology was suggestive of viral illness. As far as brain MRI findings are concerned, I am not fully convinced that these are suggestive of acute ischemic infarctions. But as they have been reported that way, I would recommend an echocardiogram to make sure there is no suggestion of her lesions that could cause embolism. As far as management is concerned, I would recommend controlling blood pressure and a baby aspirin daily. If etiology of infection was in doubt, lumbar puncture should also be considered. CTA of brain is also recommended to evaluate intracranial vasculature. Procedures Date of Service Date of Service: 05/11/21
[2021-05-11 11:34] VITALS: BP 139/74; PULSE 78; RESP 18; TEMP 36.1; O2SAT 96
[2021-05-11] MEDS: Enoxaparin Sodium 40 MG/0.4 ML SYRINGE SUBCUT (11:59)
[2021-05-11] MEDS: Azithromycin 500 MG in 0.9 % Sodium Chloride 250 ML 125 MG IV (12:00)
[2021-05-11 12:08] LABS: Glucose, Whole Blood 239 mg/dL (60-115)
[2021-05-11] MEDS: Insulin Lispro 100 UNIT/ML 3 ML VIAL SUBCUT ×3 (12:15→21:26)
--- NOTE | 2021-05-11 14:17 | P.PNIM_ITS ---
Progress Note: A&P (1) Stroke: Status: Acute (2) Pneumonia: Status: Acute Assessment and Plan: This is a 61 yo M with a PMH of DM, HTN, HLD who presents to the hospital with multiple complaints including shortness of breath, cough, diarrhea, generalized malaise, loss of appetite. He developed these symptoms while on a cruise. His pr esentation is concerning for suspected legionella. Stroke Brain MRI showed scattered acute infarcts within the posterior circulation including the right periatrial white matter, right dorsal thalamus, left storm, and right cerebral hemisphere. Neuro Echo, carotid doppler ( no stenosis in either side), PT/OT Pneumonia afebrile overnight Given his constellation of symptoms, hyponatremia, GI symptoms, travel aboard a cruise ship -- Legionella? is suspected. F/u Urine Legionella studies RPP negative IV rocephin / zithromax BCx negative HypoNa improving likely hypovolemic + partially pseudo from hyperglycemia Acute hepatitis suspected from acute infection bili downtrending, but ALT, AST increasing follow LFTs hold statin Hyperglycemia due to uncontrolled DM better control continue lantus + sliding scale RA ? on prednisone + Humira continue steroids, hold Humira HTN continue norvasc HLD statin on hold Full Code DVT pptx, lovenox Attending: Dr. Roche Subjective Subjective Date of Service: 05/11/21 Review of Systems Follow up Stroke, pneumonia No sob or dizziness resting in bed no pain Physical Exam Vital Signs: Vital Signs: Last Vital Signs Temp 96.9 F 05/11/21 11:34 Pulse 78 05/11/21 11:34 Resp 18 05/11/21 11:34 BP 139/74 05/11/21 11:34 Pulse Ox 96 05/11/21 11:34 Oxygen Flow Rate 3 05/07/21 19:27 Body Mass Index 30.5 Appearing in no acute distress lung sounds are clear to auscultation heart regular rate rhythm, clear S1, S2 positive bowel sounds, abdomen is soft, nontender neuro patient is alert x3, no focal deficits Objective Data Current Medications Acetaminophen (Acetaminophen 325 Mg Tablet) 650 mg PO Q6H PRN PRN Reason: Pain, Mild (Pain Scale 1-3) Last Admin: 05/11/21 05:55 Dose: 650 mg Documented by: Amlodipine Besylate (Amlodipine Besylate 10 Mg Tablet) 10 mg PO DAILY [facility]; Protocol Last Admin: 05/11/21 08:01 Dose: 10 mg Documented by: Aspirin (Aspirin 81 Mg Tab.Chew) 81 mg PO DAILY [facility] Last Admin: 05/11/21 08:02 Dose: 81 mg Documented by: Dorzolamide/Timolol (Dorzolamide/Timolo 2.23%/0.68% 10 Ml Drbtl) 1 drop EYE- BOTH BID [facility] Last Admin: 05/11/21 08:04 Dose: Not Given Documented by: Enoxaparin Sodium (Enoxaparin Sodium 40 Mg/0.4 Ml Syringe) 40 mg SUBCUT Q24H [facility] Last Admin: 05/11/21 11:59 Dose: 40 mg Documented by: Folic Acid (Folic Acid 1 Mg Tablet) 1 mg PO BID [facility] Last Admin: 05/11/21 08:02 Dose: 1 mg Documented by: Gabapentin (Gabapentin 300 Mg Capsule) 600 mg PO BID [facility] Last Admin: 05/11/21 08:02 Dose: 600 mg Documented by: Guaifenesin/Dextromethorphan (Guaifenesin Dm 600/30 1 Tab Tab.Er.12h) 2 tab PO BID [facility] Last Admin: 05/11/21 08:01 Dose: 2 tab Documented by: Ceftriaxone Sodium 1 gm/ (Sodium Chloride) 50 mls @ 100 mls/hr IV Q24H [facility] Last Infusion: 05/11/21 10:26 Dose: Infused Documented by: Azithromycin 500 mg/ Sodium (Chloride) 250 mls @ 125 mls/hr IV Q24H [facility] Last Admin: 05/11/21 12:00 Dose: 125 mls/hr Documented by: Insulin Glargine (Insulin Glargine,Hum.Rec.Anlog 100 Unit/Ml 10 Ml Vial) 40 u nit SUBCUT BEDTIME [facility] Last Admin: 05/10/21 21:18 Dose: 40 unit Documented by: Insulin Human Lispro (Insulin Lispro 100 Unit/Ml 3 Ml Vial) 0 unit SUBCUT QIDACHS [facility]; Protocol Last Admin: 05/11/21 12:15 Dose: 4 unit Documented by: Omeprazole (Omeprazole 20 Mg Capsule.Dr) 20 mg PO DAILY@0630 [facility] Last Admin: 05/11/21 05:51 Dose: 20 mg Documented by: Ondansetron HCl (Ondansetron Hcl 4 Mg/2 Ml Vial) 4 mg IVPUSH Q8H PRN PRN Reason: Nausea and Vomiting Pharmacy Consult (Consult Rx Perform Med Rec) 1 each MISCELLANE ONCE PRN PRN Reason: Consult order Prednisolone Acetate (Prednisolone Acetate 1 % Oph Susp 5 Ml Drpbtl) 1 drop E YE-BOTH DAILY [facility] Last Admin: 05/11/21 08:06 Dose: 1 drop Documented by: Prednisone (Prednisone 5 Mg Tablet) 10 mg PO DAILY [facility] Last Admin: 05/11/21 08:01 Dose: 10 mg Documented by: Prednisone (Prednisone 1 Mg Tablet) 3 mg PO DAILY [facility] Last Admin: 05/11/21 08:01 Dose: 3 mg Documented by: Sertraline HCl (Sertraline Hcl 100 Mg Tablet) 100 mg PO DAILY [facility] Last Admin: 05/11/21 08:01 Dose: 100 mg Documented by: Sodium Chloride (0.9 % Sodium Chloride Flush 3 Ml Syringe) 3 ml IVFLUSH QSHIFT [facility] Last Admin: 05/11/21 08:07 Dose: 3 ml Documented by: Valacyclovir HCl (Valacycyclovir Hcl 1,000 Mg Tablet) 1,000 mg PO BID [facility] Last Admin: 05/11/21 08:02 Dose: 1,000 mg Documented by: Labs CBC & Chem 7: 05/09/21 05:13 05/10/21 05:26 Labs: Laboratory Results - last 24 hr 05/10/21 05/10/21 05/11/21 17:01 20:39 07:40 POC Glucose 220 H 230 H 99 05/11/21 11:33 POC Glucose 239 H Microbiology Microbiology Results: Microbiology 05/09/21 05:08 Blood - Venous Blood Culture - Preliminary No growth after 48 hours. 05/09/21 05:12 Blood - Venous Blood Culture - Preliminary No growth after 48 hours. 05/07/21 09:22 Blood - Venous Blood Culture - Preliminary No growth after 48 hours. 05/07/21 09:20 Blood - Venous Blood Culture - Preliminary No growth after 48 hours. Quality Stroke Does the patient have a stroke diagnosis?: No VTE Prior VTE?: No VTE Risk Level:: Medical - moderate - high VTE Device Contraindication: N/A - Device Ordered VTE Drug Contraindication: Treatment Not Indicated
[2021-05-11 15:12] VITALS: BP 134/72; PULSE 80; RESP 17; TEMP 36.6; O2SAT 96
[2021-05-11 16:27] LABS: Glucose, Whole Blood 277 mg/dL (60-115)
[2021-05-11 19:47] VITALS: BP 141/74; PULSE 78; RESP 17; TEMP 36.2; O2SAT 94
[2021-05-11 20:25] LABS: Glucose, Whole Blood 191 mg/dL (60-115)
[2021-05-11] MEDS: Insulin Glargine,Hum.rec.anlog 100 UNIT/ML 10 ML VIAL 40 UNIT SUBCUT (21:25)
[2021-05-12] VITALS (7 sets, daily range): BP systolic 131–161; BP diastolic 65–79; PULSE 71–87; RESP 16–18; TEMP 35.8–36.6; O2SAT 80–99
[2021-05-12] MEDS: 0.9 % Sodium Chloride Flush 3 ML SYRINGE IVFLUSH ×4 (00:52→21:31)
[2021-05-12] MEDS: Acetaminophen 325 MG TABLET 650 MG PO (01:03)
[2021-05-12 04:58] LABS: Hematocrit 28.1 % (42-52); Hemoglobin 9.7 g/dl (14.0-18.0); Mean Corpuscular HGB Conc 34.5 g/dl (31.0-36.0); Mean Corpuscular Hemoglobin 24.1 pg (27.0-33.0); Mean Corpuscular Volume 69.9 fL (80-98); Platelet Count 404 X10*3/uL (160-400); Red Blood Count 4.02 X10*6/uL (4.60-5.80); Red Cell Distribution Width 13.8 % (11.0-16.0); White Blood Count 11.3 X10*3/uL (4.8-10.8)
[2021-05-12 05:14] LABS: Anion Gap 14 (12-20); Blood Urea Nitrogen 11 mg/dL (9-16); Calcium 8.8 mg/dL (8.4-10.2); Carbon Dioxide 23 mmol/L (22-29); Chloride 104 mmol/L (96-108); Creatinine Clr Calc Pharmacy 126.1; Estimated Glomerular Filt Rate > 60; Glucose Random 120 mg/dL (60-115); Potassium 3.8 mmol/L (3.3-5.1); Sodium 137 mmol/L (135-145)
[2021-05-12] MEDS: Omeprazole 20 MG CAPSULE.DR PO (06:01)
[2021-05-12 08:03] LABS: Glucose, Whole Blood 254 mg/dL (60-115)
[2021-05-12] MEDS: Aspirin 81 MG TAB.CHEW PO (08:18)
[2021-05-12] MEDS: Gabapentin 300 MG CAPSULE 600 MG PO ×2 (08:18→21:27)
[2021-05-12] MEDS: amLODIPine Besylate 10 MG TABLET PO (08:18)
[2021-05-12] MEDS: Sertraline HCL 100 MG TABLET PO (08:18)
[2021-05-12] MEDS: guaiFENesin DM 600/30 1 TAB TAB.ER.12H 2 TAB PO ×2 (08:18→21:27)
[2021-05-12] MEDS: predniSONE 1 MG TABLET 3 MG PO (08:19)
[2021-05-12] MEDS: predniSONE 5 MG TABLET 10 MG PO (08:19)
[2021-05-12] MEDS: Folic Acid 1 MG TABLET PO ×2 (08:19→21:27)
[2021-05-12] MEDS: cefTRIAXone sodium 1 GM in 0.9 % Sodium Chloride 50 ML IV (08:22)
[2021-05-12] MEDS: Insulin Lispro 100 UNIT/ML 3 ML VIAL SUBCUT ×4 (08:22→21:30)
[2021-05-12] MEDS: prednisoLONE Acetate 1 % Oph Susp 5 ML DRPBTL 1 DROP EYE-BOTH (09:41)
--- NOTE | 2021-05-12 09:47 | PM.IMPN ---
Progress Note: A&P (1) Stroke: Status: Acute (2) Pneumonia: Status: Acute Assessment and Plan: This is a 61 yo M with a PMH of DM, HTN, HLD who presents to the hospital with multiple complaints including shortness of breath, cough, diarrhea, generalized malaise, loss of appetite. He developed these symptoms while on a cruise. His presentation is concerning for suspected legionella. Stroke Brain MRI? showed?scattered acute infarcts within the posterior circulation including the right periatrial white matter, right dorsal thalamus, left storm, and right cerebral hemisphere. Neuro following Echo, carotid doppler ( no stenosis in either side), PT/OT rec home PT Pneumonia afebrile overnight Given his constellation of symptoms, hyponatremia, GI symptoms, travel aboard a cruise ship -- Legionella? is suspected. F/u Urine Legionella studies RPP negative IV rocephin / zithromax BCx negative HypoNa improving likely hypovolemic + partially pseudo from hyperglycemia Acute hepatitis suspected from acute infection bili downtrending, but ALT, AST increasing follow LFTs hold statin Hyperglycemia due to uncontrolled DM better control continue lantus + sliding scale RA on prednisone + Humira continue steroids, hold Humira HTN continue norvasc HLD statin on hold DISPO. Needs echo. possible dc tomorrow after echo completed Full Code DVT pptx, lovenox Attending: Dr. Roche Subjective Subjective Date of Service: 05/12/21 Review of Systems Follow up stroke Still alittle off balance no headache, visual changes, chest pain Physical Exam Vital Signs: Vital Signs: Last Vital Signs Temp 96.8 F 05/12/21 07:52 Pulse 77 05/12/21 08:18 Resp 18 05/12/21 07:52 BP 131/69 05/12/21 08:18 Pulse Ox 80 L 05/12/21 07:52 Oxygen Flow Rate 3 05/07/21 19:27 Body Mass Index 30.5 Appearing in no acute distress lung sounds are clear to auscultation heart regular rate rhythm, clear S1, S2 positive bowel sounds, abdomen is soft, nontender neuro patient is alert x3, no focal deficits Objective Data Current Medications Acetaminophen (Acetaminophen 325 Mg Tablet) 650 mg PO Q6H PRN PRN Reason: Pain, Mild (Pain Scale 1-3) Last Admin: 05/12/21 01:03 Dose: 650 mg Documented by: Amlodipine Besylate (Amlodipine Besylate 10 Mg Tablet) 10 mg PO DAILY [facility]; Protocol Last Admin: 05/12/21 08:18 Dose: 10 mg Documented by: Aspirin (Aspirin 81 Mg Tab.Chew) 81 mg PO DAILY [facility] Last Admin: 05/12/21 08:18 Dose: 81 mg Documented by: Dorzolamide/Timolol (Dorzolamide/Timolo 2.23%/0.68% 10 Ml Drbtl) 1 drop EYE-BOTH BID [facility] Last Admin: 05/12/21 09:43 Dose: Not Given Documented by: Enoxaparin Sodium (Enoxaparin Sodium 40 Mg/0.4 Ml Syringe) 40 mg SUBCUT Q24H [facility] Last Admin: 05/11/21 11:59 Dose: 40 mg Documented by: Folic Acid (Folic Acid 1 Mg Tablet) 1 mg PO BID [facility] Last Admin: 05/12/21 08:19 Dose: 1 mg Documented by: Gabapentin (Gabapentin 300 Mg Capsule) 600 mg PO BID [facility] Last Admin: 05/12/21 08:18 Dose: 600 mg Documented by: Guaifenesin/Dextromethorphan (Guaifenesin Dm 600/30 1 Tab Tab.Er.12h) 2 tab PO BID [facility] Last Admin: 05/12/21 08:18 Dose: 2 tab Documented by: Ceftriaxone Sodium 1 gm/ (Sodium Chloride) 50 mls @ 100 mls/hr IV Q24H [facility] Last Infusion: 05/12/21 09:42 Dose: Infused Documented by: Azithromycin 500 mg/ Sodium (Chloride) 250 mls @ 125 mls/hr IV Q24H [facility] Last Infusion: 05/11/21 17:03 Dose: Infused Documented by: Insulin Glargine (Insulin Glargine,Hum.Rec.Anlog 100 Unit/Ml 10 Ml Vial) 40 unit SUBCUT BEDTIME [facility] Last Admin: 05/11/21 21:25 Dose: 40 unit Documented by: Insulin Human Lispro (Insulin Lispro 100 Unit/Ml 3 Ml Vial) 0 unit SUBCUT QIDACHS [facility]; Protocol Last Admin: 05/12/21 08:22 Dose: 6 unit Documented by: Omeprazole (Omeprazole 20 Mg Capsule.Dr) 20 mg PO DAILY@0630 [facility] Last Admin: 05/12/21 06:01 Dose: 20 mg Documented by: Ondansetron HCl (Ondansetron Hcl 4 Mg/2 Ml Vial) 4 mg IVPUSH Q8H PRN PRN Reason: Nausea and Vomiting Pharmacy Consult (Consult Rx Perform Med Rec) 1 each MISCELLANE ONCE PRN PRN Reason: Consult order Prednisolone Acetate (Prednisolone Acetate 1 % Oph Susp 5 Ml Drpbtl) 1 drop EYE-BOTH DAILY [facility] Last Admin: 05/12/21 09:41 Dose: 1 drop Documented by: Prednisone (Prednisone 5 Mg Tablet) 10 mg PO DAILY [facility] Last Admin: 05/12/21 08:19 Dose: 10 mg Documented by: Prednisone (Prednisone 1 Mg Tablet) 3 mg PO DAILY [facility] Last Admin: 05/12/21 08:19 Dose: 3 mg Documented by: Sertraline HCl (Sertraline Hcl 100 Mg Tablet) 100 mg PO DAILY [facility] Last Admin: 05/12/21 08:18 Dose: 100 mg Documented by: Sodium Chloride (0.9 % Sodium Chloride Flush 3 Ml Syringe) 3 ml IVFLUSH QSHIFT [facility] Last Admin: 05/12/21 08:22 Dose: 3 ml Documented by: Valacyclovir HCl (Valacycyclovir Hcl 1,000 Mg Tablet) 1,000 mg PO BID [facility] Last Admin: 05/12/21 08:19 Dose: 1,000 mg Documented by: Labs CBC & Chem 7: 05/12/21 04:37 05/12/21 04:37 Labs: Laboratory Results - last 24 hr 05/11/21 05/11/21 05/11/21 11:33 16:23 20:17 MCV MCH MCHC RDW Plt Count MPV Absolute Nucleated RBC Nucleated RBC % (auto) Anion Gap Estim Creat Clear Calc Estimated GFR POC Glucose 239 H 277 H 191 H Random Glucose Calcium 05/12/21 05/12/21 05/12/21 04:37 04:37 07:52 MCV 69.9 L MCH 24.1 L MCHC 34.5 RDW 13.8 Plt Count 404 H D MPV 11.0 Absolute Nucleated RBC 0.000 Nucleated RBC % (auto) 0.0 Anion Gap 14 Estim Creat Clear Calc 126.1 Estimated GFR > 60 POC Glucose 254 H Random Glucose 120 H Calcium 8.8 Microbiology Microbiology Results: Microbiology 05/09/21 05:08 Blood - Venous Blood Culture - Preliminary No growth after 48 hours. 05/09/21 05:12 Blood - Venous Blood Culture - Preliminary No growth after 48 hours. 05/07/21 09:22 Blood - Venous Blood Culture - Preliminary No growth after 48 hours. 05/07/21 09:20 Blood - Venous Blood Culture - Preliminary No growth after 48 hours. Quality Stroke Does the patient have a stroke diagnosis?: No VTE Prior VTE?: No VTE Risk Level:: Medical - moderate - high VTE Device Contraindication: N/A - Device Ordered VTE Drug Contraindication: Treatment Not Indicated
[2021-05-12] MEDS: Azithromycin 500 MG in 0.9 % Sodium Chloride 250 ML 125 MG IV (11:30)
[2021-05-12 12:05] LABS: Glucose, Whole Blood 294 mg/dL (60-115)
[2021-05-12] MEDS: Enoxaparin Sodium 40 MG/0.4 ML SYRINGE SUBCUT (12:48)
--- NOTE | 2021-05-12 16:01 | MHC.CM.PN ---
PER REVIEW OF MEDICAL RECORD, PLAN IS FOR ECHO TOMORROW. POSSIBLE DISCHARGE HOME LATER IN THE DAY.
[2021-05-12 16:47] LABS: Glucose, Whole Blood 295 mg/dL (60-115)
[2021-05-12 20:10] LABS: Glucose, Whole Blood 247 mg/dL (60-115)
[2021-05-12] MEDS: Insulin Glargine,Hum.rec.anlog 100 UNIT/ML 10 ML VIAL 40 UNIT SUBCUT (21:29)
[2021-05-13] VITALS: BP 141/63; PULSE 76; RESP 16; TEMP 36.4; O2SAT 97
[2021-05-13 04:00] VITALS: BP 151/76; PULSE 72; RESP 16; TEMP 35.9; O2SAT 98
[2021-05-13] MEDS: Omeprazole 20 MG CAPSULE.DR PO (05:48)
[2021-05-13 07:15] VITALS: BP 156/73; PULSE 69; RESP 18; TEMP 36.4; O2SAT 98
[2021-05-13 07:46] LABS: Glucose, Whole Blood 107 mg/dL (60-115)
--- NOTE | 2021-05-13 08:00 | CA_ITS ---
Transthoracic Echocardiogram Patient (Last, First, Middle): Alber Vazquez, Gender: Male Date of : 1960 Age: 61 Procedure Date: 05/13/2021 Procedure Type: Transthoracic Echocardiogram Location: [facility] [place] Height: 182.88 cm Weight: 102.06 kg BSA: 2.24 m2 Heart Rate: bpm BP: 134 / 63 mmHg Credit Assistant: CHANDRA Referring MD: Meghan An NP Symptoms: stroke protocol, need bubble study to r/o PFO Study Quality: Fair ECG Rhythm: Sinus Conclusions: - The left ventricular systolic function is normal. The visually estimated ejection fraction is between 60-65%. - There is no evidence of interatrial shunt by agitated saline. - There is mild to moderate aortic valve regurgitation. - There is mild dilatation of the ascending aorta measuring 3.60 cm. Findings Left Ventricle Normal left ventricular cavity size. There is mildly increased left ventricular wall thickness. The left ventricular systolic function is normal. The visually estimated ejection fraction is between 60-65%. There is no evidence of regional wall motion abnormalities. Diastolic function is normal for age. Right Ventricle Normal right ventricular cavity size and systolic function. Atria Both atria are normal in size. There is no evidence of interatrial shunt by agitated saline. Aortic Valve There is no aortic valve stenosis. There is mild to moderate aortic valve regurgitation. Likely trileaflet valve. Slight thickening noted. Mitral Valve The mitral valve appears normal. There is trace mitral valve regurgitation. There is no mitral valve stenosis. Pulmonic Valve The pulmonic valve was not well visualized. There is mild pulmonic valve regurgitation. Tricuspid Valve Normal tricuspid valve structure. There is trace tricuspid valve regurgitation. The pulmonary artery systolic pressure is normal. Great Vessels There is mild dilatation of the ascending aorta measuring 3.60 cm. Venous The inferior vena cava is normal in size and collapses greater than 50% with inspiration. Pericardium/Pleural There is no evidence of pericardial effusion. Prior Study Comparison No prior study available for comparison. Measurements 2D Linear Measurements IVSd: 1.25 0.6-0.9/0.6-1.0 cm LVIDd: 4.89 3.9-5.3/4.2-5.9 cm LVIDd Index: 2.18 2.4-3.2/2.2-3.1 cm/m2 LVIDs: 2.91 2.0-3.6 cm LVPWd: 1.21 0.7-1.1 cm Ao Root: 3.20 2.1-3.5 cm LA Diam: 3.30 2.7-3.8/3.0-4.0 cm LAIDs Index: 1.47 1.5-2.3 cm/m2 LV Mass: 291.34 67-162/88-224 g LV Mass Index: 130.06 43-95/49-115 g/m2 LVOT Diam: 2.00 3.0+(-)1.3 cm Mitral Valve MV Pk E: 0.90 MV PK A: 0.77 MV Decel Time: 162.00 E/A: 1.20 E'Lateral: 10.10 E'Medial: 6.74 E/E' Med: 13.40 E/E' Lat: 9.00 PHT: 47.00 MVA PHT: 4.68 Decel Perkins: 5.58 Aortic Valve AoV Pk Tushar: 1.75 AoV Mn Tushar: 1.16 AoV VTI: 0.35 AoV Pk Grad: 12.00 Aov Mn Grad: 6.00 MITCHELL Cont.VTI: 2.39 AI Pk Tushar: 4.67 AI Perkins: 3.44 LVOT LVOT Pk Tushar: 1.17 LVOT Mn Tushar: 0.82 LVOT VTI: 0.27 LVOT Pk Grad: 5.00 LVOT Mn Grad: 3.00 LVOT Diam: 2.00 LVOT Area: 3.14 Diastolic Function MV Pk E: 0.90 MV Pk A: 0.77 E/A: 1.20 E'Medial: 6.74 E/E' Med: 13.40 E' Laterial: 10.10 E/E' Lat: 9.00 Right Ventricle TAPSE (mm): 27.00 TVS' Tushar: 13.00 Tricuspid Valve TR Pk Tushar: 2.32 TR Pk Grad: 22.00 Great Vessels Aorta Ao Root-2D: 3.20 2.0-3.7 cm Ao Asc: 3.60 2.1-3.4 cm Pulmonary Valve PV Pk Tushar: 1.05 Peak PV Grad: 4.00 Updated in Other Vendor System with Status of Final Venancio Grider MD electronically signed on 05/13/2021 10:13:21 AM with status of Final
[2021-05-13] MEDS: amLODIPine Besylate 10 MG TABLET PO (09:00)
[2021-05-13] MEDS: predniSONE 5 MG TABLET 10 MG PO (09:00)
[2021-05-13] MEDS: Gabapentin 300 MG CAPSULE 600 MG PO (09:00)
[2021-05-13] MEDS: guaiFENesin DM 600/30 1 TAB TAB.ER.12H 2 TAB PO (09:00)
[2021-05-13] MEDS: Aspirin 81 MG TAB.CHEW PO (09:01)
[2021-05-13] MEDS: predniSONE 1 MG TABLET 3 MG PO (09:01)
[2021-05-13] MEDS: Folic Acid 1 MG TABLET PO (09:02)
[2021-05-13] MEDS: Sertraline HCL 100 MG TABLET PO (09:02)
[2021-05-13] MEDS: Dorzolamide/Timolo 2.23%/0.68% 10 ML DRBTL 1 DROP EYE-BOTH (09:07)
[2021-05-13] MEDS: prednisoLONE Acetate 1 % Oph Susp 5 ML DRPBTL 1 DROP EYE-BOTH (09:07)
[2021-05-13] MEDS: cefTRIAXone sodium 1 GM in 0.9 % Sodium Chloride 50 ML IV (09:07)
[2021-05-13] MEDS: 0.9 % Sodium Chloride Flush 3 ML SYRINGE IVFLUSH (09:08)
[2021-05-13 10:29] VITALS: BP 156/73; PULSE 69; O2SAT 98
--- NOTE | 2021-05-13 10:29 | P.CDIC_ITS ---
CDI Concurrent Query Documentation Clarification: PHYSICIAN'S DOCUMENTATION REQUEST Date of Query: 05/13/21 1029 Patient Name: Alber Vazquez Admit Date: 05/07/21 Dear Doctor, A review of the medical record indicates additional documentation may be needed. Please review below and update the documentation accordingly. Clinical Indicators: Risk Factors/Clinical Indicators/Treatments Neurology consultation note 05/11 - Assessment/plan: Encephalopathy malaise, loss of appetite, cough, shortness of breath. Based on the above, please further specify, in the Progress Notes, the known or suspected type of the documented encephalopathy: Treating, rule out, poa etc. * Metabolic * Toxic * Toxic metabolic * Due to a specified condition (such as UTI, hyponatremia, CVA, etc.) * Other (please specify) * Unable to determine Use of terms such as suspected, likely, concern for, or probable (associated with a specific diagnosis that is being evaluated, monitored, or treated as if it exists) are acceptable and can be coded in the inpatient setting, when documented at the time of discharge. Thank you, Lorenza Conner [facility], CDIS Extension: [phone] Please use your independent medical judgment in providing your response. THIS QUERY IS PART OF THE PERMANENT MEDICAL RECORD Provider Response: Other Other Diagnosis: Patient is not encephalopathic
[2021-05-13] MEDS: Azithromycin 500 MG in 0.9 % Sodium Chloride 250 ML 125 MG IV (11:01)
[2021-05-13 11:12] LABS: Glucose, Whole Blood 144 mg/dL (60-115)
[2021-05-13 12:00] VITALS: BP 140/69; PULSE 92; RESP 18; TEMP 37; O2SAT 96
--- NOTE | 2021-05-13 12:53 | MHC.STROKE ---
I HAVE BEEN FOLLOWING THIS PATIENT AND TODAY I MET WITH HIM AND HIS TWICE. I ALSO DISCUSSED THE CASE WITH DR HAWKINS AND RADIOLOGY. DR. HAWKINS AND DR CRUZ DISCUSSED THE MRI AND AN ADDENDUM WAS ENTERED. DR HAWKINS DECIDED THAT A CTA H/N WAS NOT INDICATED AT THIS TIME. I DID REVIEW THIS INFORMATION WITH THE PATIENT AND HIS . I ANSWERED ALL OF THEIR QUESTIONS AND I DID PROVIDE STROKE EDUCATION AND DISCUSSED HIS RISK FACTORS FOR STROKE. I ALSO WENT OVER S&S OF STROKE AND TO CALL 911 IF ANY STROKE SYMPTOMS OCCUR. I DID RELAY THIS INFORMATION TO SHELLIE PADILLA NP.
--- NOTE | 2021-05-13 12:57 | MHC.CM.PN ---
CM MET WITH PT AND S/O AT BEDSIDE. PT IS BEING DISCHARGED HOME TODAY THEY REPORT BEING INTERESTED IN HOME PT/SN A REFERRAL WAS MADE TO [facility]
--- NOTE | 2021-05-13 14:09 | P.DS_ITS ---
DS: Providers Provider Date of Service: 05/13/21 Date of admission: 05/07/21 10:51 Primary care physician: ALDO El Consults: 05/10/21 18:20 Consult to Neurology Routine Consulting Provider: [facility] Reason for consultation: stroke Has provider been notified: No Attending physician on discharge: Edmond Diaz Discharging clinician: Meghan An DS: Diagnosis Discharge Diagnosis (1) Pneumonia: Status: Acute (2) Transaminitis: Status: Acute DS: Summary Hospital Course Hospital Course: HP as per admitting provider This is a 61-year-old male with a past medical history of hypertension, insulin-dependent diabetes, hyperlipidemia, who reports that for the last about 4 days he has had fevers and chills, nonproductive cough, back ache, diarrhea about 3-4 times daily with associated loss of appetite but no vomiting.? Patient reports that he was on a [place] and his symptoms began about 4-5 days ago.? Per ED provider report -- there was a known COVID sick contact on the cruise. The patient himself denies anyone else within his house hold being sick. He endorses that he has been vaccinated for COVID, for several months at least. He reports that his diarrhea was watery, 3-4 times a day without blood. He reports loss of appetite and reports that he has not taken his medications for several days. He denies any tobacco, alcohol or illicit substance use. Upon arrival to the ED, he was noted to be tachycardic and mild respiratory distress. His work up showed elevated LFTs - T. Bili 3.9, elevated lactate 0 2.2, a CXR showing pneumonia, SNa 126, Glucose, Mag 1.3? He was given IV rocephin/levaquin/IV fluids, IV mag and admission was requested . Unsteady gait. Initially thought to be secondary to a stroke as the MRI was showing multiple areas of infarct, however after the neurologist discussed the reading with the radiologist it was noted that there was not areas of infarction noted. He did have initial work up for stroke including carotid doppler echocardiogram all negative. He was seen and evaluated by neurology with no further Pneumonia. suspected Legionella Due to hyponatremia, GI symptoms and recent travel on a cruise ship . Initially treated with ceftriaxone and azithromycin. Will complete a total of 10 days azithromycin. Legionella is still pending and will be reported to the patient if positive. blood cultures were negative Hyponatremia. Secondary to hypovolemia. Resolved. Acute hepatitis. suspected from acute infection . Bilirubin trended down however AST and ALT were elevated. Patient will check liver function in one week, statin was on hold while he was inpatient. He can continue at home. Time Spent with Patient Time attestation: Total time spent providing and/or coordinating discharge services: Discharge coordination time: Greater than 30 minutes Quality: Stroke Does the patient have a stroke diagnosis?: No Physical Exam Vital Signs: Vital Signs: Last Vital Signs Temp 98.6 F 05/13/21 12:00 Pulse 92 05/13/21 12:00 Resp 18 05/13/21 12:00 BP 140/69 H 05/13/21 12:00 Pulse Ox 96 05/13/21 12:00 Oxygen Flow Rate 3 05/07/21 19:27 Body Mass Index 30.5 Appearing in no acute distress head is normocephalic atraumatic eyes pupils are PERRLA sclera is anicteric mouth throat mucous membranes are intact and moist neck is supple no lymphadenopathy, no JVD noted lung sounds are clear to auscultation heart regular rate rhythm, clear S1, S2 positive bowel sounds, abdomen is soft, nontender neuro patient is alert x3, no focal deficits DS: Data Data Completed and Pending Labs on day of discharge: Laboratory Results - last 24 hr 05/12/21 05/12/21 05/13/21 16:43 20:05 07:33 POC Glucose 295 H 247 H 107 05/13/21 11:07 POC Glucose 144 H Preliminary micro results at discharge 05/09/21 05:08 Blood Culture - Preliminary Blood - Venous No growth after 48 hours. 05/09/21 05:12 Blood Culture - Preliminary Blood - Venous No growth after 48 hours. Discharge Plan Discharge Anticipated Discharge Date/Time: 05/13/21 12:52 Patient Disposition: Home Health Service Discharge Diagnosis: Suspected Legionella pneumonia Unsteady gait Encephalopathy Referrals: Brigida PEREZ [Outside] - 1 Week Tanna Espinal PA [Primary Care Provider] - 1 Week Discharge Medications: New azithromycin 500 mg tablet 500 mg PO DAILY 3 Days Qty: 3 RF: 0 Continued valacyclovir 1 gram tablet 1 tab PO BID RF: 0 prednisone 5 mg tablet 10 mg PO DAILY RF: 0 prednisone 1 mg tablet 3 mg PO DAILY RF: 0 glimepiride 4 mg tablet 1 tab PO DAILY RF: 0 aspirin 81 mg Tablet,Chewable 81 mg PO DAILY RF: 0 prednisolone acetate 1 % drops,suspension 1 drp ophthalmic (eye) DAILY RF: 0 netarsudil-latanoprost 0.02-0.005 % drops 1 drp ophthalmic (eye) BEDTIME RF: 0 dulaglutide 1.5 mg/0.5 mL pen injector 1.5 mg subcut MO RF: 0 metformin 1,000 mg tablet 1,000 mg PO BID RF: 0 folic acid 1 mg tablet 1 mg PO BID RF: 0 dorzolamide-timolol 22.3-6.8 mg/mL drops 1 drp ophthalmic (eye) BID RF: 0 etodolac 400 mg tablet 400 mg PO BID RF: 0 gabapentin 300 mg capsule 600 mg PO BID RF: 0 omeprazole 20 mg capsule,delayed release(DR/EC) 20 mg PO DAILY RF: 0 atorvastatin 80 mg tablet 40 mg PO DAILY RF: 0 amlodipine 10 mg tablet 10 mg PO DAILY RF: 0 sertraline 100 mg tablet 100 mg PO DAILY RF: 0 insulin glargine 100 unit/mL (3 mL) insulin pen 60 unit subcut BEDTIME RF: 0 albuterol sulfate [ProAir HFA] 90 mcg/actuation HFA aerosol inhaler 2 puff inhalation Q4-6H PRN (Reason: shortness of breath or wheezing) Qty: 6.7 RF: 0 Discharge Orders: Discharge Order (Routine); Ordered 05/13/21 Ordered By: Meghan An Diet: advance to usual diet Activity on Discharge: As tolerated Stand Alone Forms: Patient Portal Discharge page Other Ambulatory Orders: Liver Panel (Routine) Timeframe: 1 Week Facility: [facility] - Location: Laboratory Ordered By: Meghan An Care Plan Goals: resolution of symptoms Health Concerns: unsteady gait, encephalopathy, suspected Legionella pneumonia Plan of Treatment: follow-up with your primary care provider as needed Continue medications as prescribed Assessment: see discharge summary
[2021-05-21 10:53] LABS: Legionella Ag Urine DETECTED
== END 2021-05-13 13:30 | disposition home health service (06) | DRG 178 ==
LOC: HO.ED 10:23 → HO.EDOVER 11:04 → HO.S3 18:43
PROVIDERS: Physician Assistant Medical; Admitting Provider Family Medicine; Emergency Provider Emergency Medicine; PCP Physician Assistant; Visit Provider Nurse Practitioner Acute Care
DX: A48.1 Legionnaires' disease (principal); E87.1 Hypo-osmolality and hyponatremia; B17.9 Acute viral hepatitis, unspecified; E78.5 Hyperlipidemia, unspecified; I10 Essential (primary) hypertension; M06.9 Rheumatoid arthritis, unspecified; E83.42 Hypomagnesemia; R26.81 Unsteadiness on feet; E11.65 Type 2 diabetes mellitus with hyperglycemia; Z20.822 Contact with and (suspected) exposure to COVID-19; Z79.4 Long term (current) use of insulin; Z79.52 Long term (current) use of systemic steroids; Z79.82 Long term (current) use of aspirin; Z79.899 Other long term (current) drug therapy
CPT/HCPCS: 0241U; 36415; 70450; 70551; 71045; 71275; 80048; 80076; 81001; 82947; 83605; 83735; 84145; 85025; 85027; 85610; 87040; 87449; 87633; 93005; 93306; 93880; 96361; 96365; 96375; 97112; 97116; 97163; 99285; J0456; J0696; J1650; J1956; J3475; Q9967